=== PATIENT | female | born 1935 | race Caucasian/White ===

== ENCOUNTER → 2016-03-09 | Outpatient (CLI) | payer MEDICARE, OTHER ==
[2016-03-09 15:13] LABS: ABSOLUTE BASOPHILS # (AUTO) 0.1 10^3/uL (0.0-0.2); ABSOLUTE EOSINOPHILS # (AUTO) 0.1 10^3/uL (0.0-0.6); ABSOLUTE MONOCYTES (AUTO) 1.2 10^3/uL (0.1-1.4); ABSOLUTE NEUT (AUTO) 10.6 10^3/uL (1.7-8.2); BASOPHILS % (AUTO) 0.7 % (0-2); EOSINOPHILS % (AUTO) 0.8 % (0-6); HEMATOCRIT 40.5 % (36.0-47.0); HEMOGLOBIN 13.4 g/dL (12.0-15.5); HGB HCT DIFFERENCE -0.3; LYMPHOCYTES % (AUTO) 14.1 % (13-45); MEAN CORPUSCULAR HEMOGLOBIN 28.5 pg (27.0-33.4); MEAN CORPUSCULAR HGB CONC 33.1 g/dL (32.0-36.0); MEAN CORPUSCULAR VOLUME 86 fl (80-97); MONOCYTES % (AUTO) 8.3 % (3-13); RED BLOOD COUNT 4.71 10^6/uL (3.72-5.28); RED CELL DISTRIBUTION WIDTH 14.6 % (11.5-14.0); SEGMENTED NEUTROPHILS % (AUTO) 76.1 % (42-78)
[2016-03-09 15:31] LABS: ANION GAP 14 (5-19); BLOOD UREA NITROGEN 19 mg/dL (7-20); CALCIUM 9.8 mg/dL (8.4-10.2); CARBON DIOXIDE 26 mmol/L (22-30); CHLORIDE 102 mmol/L (98-107); CREATININE RESULT 0.92 mg/dL (0.52-1.25); GLUCOSE 83 mg/dL (75-110); POTASSIUM 4.2 mmol/L (3.6-5.0); SODIUM 142.3 mmol/L (137-145)
== END ==
LOC: OD 13:19
PROVIDERS: ATTEND Specialist
DX: R10.9 Unspecified abdominal pain (principal); D50.9 Iron deficiency anemia, unspecified
CPT/HCPCS: 36415; 80048; 85025

== ENCOUNTER → 2016-03-12 | Outpatient (CLI) | payer MEDICARE, OTHER | LOC: RAD 09:17 | PROVIDERS: ATTEND Specialist | DX: R10.9 Unspecified abdominal pain (principal) | CPT/HCPCS: 74150 ==

== ENCOUNTER → 2016-03-16 | Outpatient (CLI) | payer MEDICARE, OTHER ==
[2016-03-16 14:45] LABS: ABSOLUTE BASOPHILS # (AUTO) 0.1 10^3/uL (0.0-0.2); ABSOLUTE EOSINOPHILS # (AUTO) 0.2 10^3/uL (0.0-0.6); ABSOLUTE LYMPHOCYTES (AUTO) 1.7 10^3/uL (0.5-4.7); ABSOLUTE MONOCYTES (AUTO) 0.4 10^3/uL (0.1-1.4); ABSOLUTE NEUT (AUTO) 5.7 10^3/uL (1.7-8.2); EOSINOPHILS % (AUTO) 2.7 % (0-6); HEMATOCRIT 39.8 % (36.0-47.0); HEMOGLOBIN 12.4 g/dL (12.0-15.5); HGB HCT DIFFERENCE -2.6; LYMPHOCYTES % (AUTO) 20.9 % (13-45); MEAN CORPUSCULAR HEMOGLOBIN 27.7 pg (27.0-33.4); MEAN CORPUSCULAR HGB CONC 31.2 g/dL (32.0-36.0); MEAN CORPUSCULAR VOLUME 89 fl (80-97); MONOCYTES % (AUTO) 5.5 % (3-13); RED BLOOD COUNT 4.49 10^6/uL (3.72-5.28); RED CELL DISTRIBUTION WIDTH 14.5 % (11.5-14.0); SEGMENTED NEUTROPHILS % (AUTO) 69.9 % (42-78); WHITE BLOOD COUNT 8.1 10^3/uL (4.0-10.5)
[2016-03-16 14:57] LABS: APPEARANCE,URINE CLOUDY; BILIRUBIN,URINE NEGATIVE (NEGATIVE); CALCIUM OXALATE CRYSTALS,URINE TOO NUMEROUS TO CNT /HPF; GLUCOSE, URINE NEGATIVE (NEGATIVE); KETONES,URINE NEGATIVE (NEGATIVE); LEUKOCYTE ESTERASE,URINE LARGE (NEGATIVE); NITRITE,URINE NEGATIVE (NEGATIVE); PROTEIN,URINE 30 mg/dL (NEGATIVE); URINE SPECIFIC GRAVITY 1.021; UROBILINOGEN,URINE NEGATIVE mg/dL (<2.0)
== END ==
LOC: OD 13:27
PROVIDERS: ATTEND Specialist
DX: R10.9 Unspecified abdominal pain (principal); D50.9 Iron deficiency anemia, unspecified
CPT/HCPCS: 36415; 81001; 85025; 87086

== ENCOUNTER 2016-06-30 11:56 | Emergency (ER) | payer MEDICARE, OTHER ==
--- NOTE | 2016-06-30 12:14 | ER Document Report ---
ED General - General Chief Complaint: Low Blood Pressure Stated Complaint: BLOOD PRESSURE PROBLEMS Time seen by provider: 12:13 Mode of Arrival: Wheelchair Information source: Patient TRAVEL OUTSIDE OF THE [place] IN LAST 30 DAYS: No - HPI Patient complains to provider of: dizziness, low blood pressure Onset: Other - 2-3 weeks Onset/Duration: Intermittent Severity: Mild Exacerbated by: Standing, Movement Relieved by: Denies Similar symptoms previously: Yes Recently seen / treated by doctor: Yes Notes: Patient is an 81-year-old female who was sent to the emergency room by her primary care provider for intermittent episodes of low blood pressure dizziness , she was seen by her primary care provider this morning, medication adjustments were made at a visit that she had 2 weeks ago, she continues to have intermittent episodes of hypotension and has a list of the blood pressures that she has taken over the past week with several systolic blood pressures in the 70-80 range - Related Data Allergies/Adverse Reactions: iodine [Iodine] Allergy (Verified 06/30/16 12:06) Hives Sulfa (Sulfonamide Antibiotics) Allergy (Verified 06/30/16 12:06) Pruritis aspirin [Aspirin] Adverse Reaction (Verified 06/30/16 12:06) Past Medical History - Social History Smoking Status: Never Smoker Family History: Hypertension Patient has suicidal ideation: No Patient has homicidal ideation: No - Past Medical History Cardiac Medical History: Reports: Hx Hypertension Denies: Hx Coronary Artery Disease, Hx Heart Attack Pulmonary Medical History: Reports: Hx Bronchitis, Hx Pneumonia - 20 years ago Denies: Hx Asthma, Hx COPD Neurological Medical History: Denies: Hx Cerebrovascular Accident, Hx Seizures Renal/ Medical History: Denies: Hx Peritoneal Dialysis GI Medical History: Reports: Hx Gastroesophageal Reflux Disease, Hx Hiatal Hernia Musculoskeltal Medical History: Reports Hx Arthritis - Complete L knee replacement Psychiatric Medical History: Reports: Hx Depression Past Surgical History: Reports: Hx Abdominal Surgery, Hx Appendectomy, Hx Cholecystectomy, Hx Hysterectomy. Denies: Hx Pacemaker - Immunizations Hx Diphtheria, Pertussis, Tetanus Vaccination: Yes Hx Pneumococcal Vaccination: 02/28/06 Physical Exam - Vital signs Vitals: Temp Pulse Resp BP Pulse Ox 98.3 F 78 16 142/64 H 100 06/30/16 12:06 06/30/16 12:06 06/30/16 12:06 06/30/16 12:06 06/30/16 12:06 Course - Vital Signs Vital signs: Temp Pulse Resp BP Pulse Ox 98.3 F 78 16 142/64 H 100 06/30/16 12:06 06/30/16 12:06 06/30/16 12:06 06/30/16 12:06 06/30/16 12:06
[2016-06-30 12:39] LABS: ABSOLUTE EOSINOPHILS # (AUTO) 0.2 10^3/uL (0.0-0.6); ABSOLUTE LYMPHOCYTES (AUTO) 1.6 10^3/uL (0.5-4.7); ABSOLUTE MONOCYTES (AUTO) 0.5 10^3/uL (0.1-1.4); BASOPHILS % (AUTO) 0.9 % (0-2); EOSINOPHILS % (AUTO) 3.8 % (0-6); HEMATOCRIT 38.7 % (36.0-47.0); HEMOGLOBIN 12.9 g/dL (12.0-15.5); LYMPHOCYTES % (AUTO) 29.6 % (13-45); MEAN CORPUSCULAR HEMOGLOBIN 29.1 pg (27.0-33.4); MEAN CORPUSCULAR HGB CONC 33.3 g/dL (32.0-36.0); MEAN CORPUSCULAR VOLUME 87 fl (80-97); MONOCYTES % (AUTO) 9.2 % (3-13); RED BLOOD COUNT 4.42 10^6/uL (3.72-5.28); RED CELL DISTRIBUTION WIDTH 13.5 % (11.5-14.0); SEGMENTED NEUTROPHILS % (AUTO) 56.5 % (42-78); WHITE BLOOD COUNT 5.3 10^3/uL (4.0-10.5)
[2016-06-30 12:58] LABS: ALANINE AMINOTRANSFERASE 29 U/L (9-52); ALBUMIN 3.9 g/dL (3.5-5.0); ALKALINE PHOSPHATASE 71 U/L (38-126); ANION GAP 15 (5-19); ASPARTATE AMINO TRANSFERASE 23 U/L (14-36); BILIRUBIN,DIRECT 0.2 mg/dL (0.0-0.4); BILIRUBIN,TOTAL 0.4 mg/dL (0.2-1.3); BLOOD UREA NITROGEN 24 mg/dL (7-20); CALCIUM 9.9 mg/dL (8.4-10.2); CARBON DIOXIDE 23 mmol/L (22-30); CHLORIDE 108 mmol/L (98-107); CREATININE RESULT 0.97 mg/dL (0.52-1.25); GLUCOSE 81 mg/dL (75-110); SODIUM 145.5 mmol/L (137-145); TOTAL PROTEIN 6.9 g/dL (6.3-8.2)
[2016-06-30] MEDS ORDERED: NORMAL SALINE 500 ML IV ONE (12:59)
[2016-06-30] MEDS ORDERED: NORMAL SALINE 1000 ML 1,000 ML IV ONE (13:07)
--- NOTE | 2016-06-30 14:03 | ER Document Report ---
ED General - General Chief Complaint: Low Blood Pressure Stated Complaint: BLOOD PRESSURE PROBLEMS Mode of Arrival: Wheelchair TRAVEL OUTSIDE OF THE [place] IN LAST 30 DAYS: No - HPI Patient complains to provider of: transient hypotension dizziness Notes: Since coming in for evaluation of transient hypotension and dizziness. Patient states she has had multiple visits to her primary care physician in the last few weeks 40 symptoms with no answer. Patient denies any new medications. Patient states symptoms started back in October after she had a [employer] fundoplication procedure performed patient denies fevers chills nausea vomiting change medication recent travel. Shortness of breath chest pain abdominal pain - Related Data Allergies/Adverse Reactions: iodine [Iodine] Allergy (Verified 06/30/16 12:06) Hives Sulfa (Sulfonamide Antibiotics) Allergy (Verified 06/30/16 12:06) Pruritis aspirin [Aspirin] Adverse Reaction (Verified 06/30/16 12:06) Past Medical History - General Information source: Patient - Social History Smoking Status: Never Smoker Family History: Hypertension Patient has suicidal ideation: No Patient has homicidal ideation: No - Past Medical History Cardiac Medical History: Reports: Hx Hypertension Denies: Hx Coronary Artery Disease, Hx Heart Attack Pulmonary Medical History: Reports: Hx Bronchitis, Hx Pneumonia - 20 years ago Denies: Hx Asthma, Hx COPD Neurological Medical History: Denies: Hx Cerebrovascular Accident, Hx Seizures Renal/ Medical History: Denies: Hx Peritoneal Dialysis GI Medical History: Reports: Hx Gastroesophageal Reflux Disease, Hx Hiatal Hernia Musculoskeltal Medical History: Reports Hx Arthritis - Complete L knee replacement Psychiatric Medical History: Reports: Hx Depression Past Surgical History: Reports: Hx Abdominal Surgery, Hx Appendectomy, Hx Cholecystectomy, Hx Hysterectomy. Denies: Hx Pacemaker - Immunizations Hx Diphtheria, Pertussis, Tetanus Vaccination: Yes Hx Pneumococcal Vaccination: 02/28/06 Review of Systems - Review of Systems Constitutional: Other - Transient hypotension dizziness EENT: No symptoms reported Cardiovascular: No symptoms reported Respiratory: No symptoms reported Gastrointestinal: No symptoms reported Genitourinary: No symptoms reported Female Genitourinary: No symptoms reported Musculoskeletal: No symptoms reported Skin: No symptoms reported Hematologic/Lymphatic: No symptoms reported Neurological/Psychological: No symptoms reported -: Yes All other systems reviewed and negative Physical Exam - Vital signs Vitals: Temp Pulse Resp BP Pulse Ox 98.3 F 78 16 142/64 H 100 06/30/16 12:06 06/30/16 12:06 06/30/16 12:06 06/30/16 12:06 06/30/16 12:06 Interpretation: Normal - General General appearance: Appears well, Alert - HEENT Head: Normocephalic, Atraumatic Eyes: Normal Pupils: PERRL - Respiratory Respiratory status: No respiratory distress Chest status: Nontender Breath sounds: Normal Chest palpation: Normal - Cardiovascular Rhythm: Regular Heart sounds: Normal auscultation Murmur: No - Abdominal Inspection: Normal Distension: No distension Bowel sounds: Normal Tenderness: Nontender Organomegaly: No organomegaly - Back Back: Normal, Nontender - Extremities General upper extremity: Normal inspection, Nontender, Normal color, Normal ROM , Normal temperature General lower extremity: Normal inspection, Nontender, Normal color, Normal ROM , Normal temperature, Normal weight bearing. No: Raine's sign - Neurological Neuro grossly intact: Yes Cognition: Normal Orientation: AAOx4 Felisa Coma Scale Eye Opening: Spontaneous [place] Coma Scale Verbal: Oriented [place] Coma Scale Motor: Obeys Commands [place] Coma Scale Total: 15 Speech: Normal Motor strength normal: LUE, RUE, LLE, RLE Sensory: Normal - Psychological Associated symptoms: Normal affect, Normal mood - Skin Skin Temperature: Warm Skin Moisture: Dry Skin Color: Normal Course - Re-evaluation Re-evalutation: 06/30/16 15:17 Patient's laboratory showed elevated sodium chloride possible slight dehydration. Patient was given a liter fluids and told follow-up with her PCP for possible cardiology consult. Patient states understanding agrees to plan of action. - Vital Signs Vital signs: Temp Pulse Resp BP Pulse Ox 98.3 F 78 13 141/65 H 99 06/30/16 12:06 06/30/16 12:06 06/30/16 14:00 06/30/16 14:01 06/30/16 14:01 - Laboratory Result Diagrams: 06/30/16 12:20 06/30/16 12:20 Laboratory results interpreted by me: 06/30/16 06/30/16 12:20 13:30 Sodium 145.5 H Chloride 108 H BUN 24 H Est GFR (Non-Af Amer) 55 L Ur Leukocyte Esterase TRACE H Discharge - Discharge Clinical Impression: Transient hypotension, Dehydration Condition: Good Instructions: Dizziness ([facility]) Additional Instructions: Your laboratory studies do not show any critical etiology for transient hypotension or dizziness. Possibility of this may be due to overstimulation of her vagus nerve are vasovagal symptoms. This is very hard to prove here in ER There are some indications of slight dehydration. I would highly recommend a follow-up with your primary care physician. He may need follow-up with other specialties for more testing. I recommend drinking plenty of water slowly changing positions. Return to ER symptoms worsen. Your home medications.
[2016-06-30 14:35] LABS: APPEARANCE,URINE CLEAR; BILIRUBIN,URINE NEGATIVE (NEGATIVE); GLUCOSE, URINE NEGATIVE (NEGATIVE); KETONES,URINE NEGATIVE (NEGATIVE); LEUKOCYTE ESTERASE,URINE TRACE (NEGATIVE); NITRITE,URINE NEGATIVE (NEGATIVE); PROTEIN,URINE NEGATIVE (NEGATIVE); URINE SPECIFIC GRAVITY 1.012; UROBILINOGEN,URINE NEGATIVE mg/dL (<2.0)
[2016-06-30 16:18] VITALS: BP 141/69
--- NOTE | 2016-06-30 19:04 | EKG REPORT ---
SEVERITY:- OTHERWISE NORMAL ECG - SINUS RHYTHM BORDERLINE LEFT AXIS DEVIATION : Confirmed by: Kash Gill MD 30-Jun-2016 19:03:39
== END 2016-06-30 16:16 | disposition home or self-care (01) ==
LOC: ER 11:56
DX: I95.9 Hypotension, unspecified (principal); E86.0 Dehydration; I10 Essential (primary) hypertension; R42 Dizziness and giddiness; Z98.890 Other specified postprocedural states; Z88.2 Allergy status to sulfonamides
CPT/HCPCS: 93005; 99285; 36415; 87086; 85025; 80053; 81001; 84484; 71020; 70450; 93010; J7030

== ENCOUNTER → 2016-07-30 | Outpatient (CLI) | payer MEDICARE, OTHER ==
--- NOTE | 2016-07-30 10:43 | WOMENS IMAGING REPORT ---
EXAM DESCRIPTION: BONE DENSITY HIP/SPINE COMPLETED DATE/TIME: 07/30/2016 10:30 am REASON FOR STUDY: E28.39 BONE DENSITY Z12.31 ENCNTR SCREEN MAMMOGRAM FOR MALIGNANT NEOPLASM OF DAMION E28.39 OTHER PRIMARY OVARIAN FAILURE COMPARISON: 07/06/2006 TECHNIQUE: Dual-Energy X-ray Absorptiometry (DEXA) of the AP Spine and Hip. LIMITATIONS: None. FINDINGS: LUMBAR SPINE: The bone mineral density (BMD) measured from L1-L4 in the AP projection correlates with a T-score of -1.2, previously -0.6, which is osteopenia as defined by the World Health Organization. HIP: The bone mineral density (BMD) measured in the left hip correlates with a T-score of -0.9, previously -0.6, which is normal as defined by the World Health Organization. IMPRESSION: 1. LUMBAR SPINE: OSTEOPENIA. 2. HIP: NORMAL. COMMENT: Osteopenia. The World Health Organization defines low BMD as follows: T-score: Normal: Greater than -1.0 Osteopenia: Between -1.0 and -2.5 Osteoporosis: Less than -2.5 without fractures Established osteoporosis: Less than -2.5 with fractures In general, you may wish to consider: Diagnosis Treatment Follow-up DEXA Normal BMD Prevention 2-3 years Osteopenia Prevention/Therapy 1-2 years Osteoporosis Therapy Yearly TECHNICAL DOCUMENTATION: JOB ID: [id number] [employer]- All Rights Reserved
--- NOTE | 2016-07-30 11:51 | WOMENS IMAGING REPORT ---
EXAM DESCRIPTION: 3D SCREENING MAMMO BILAT COMPLETED DATE/TIME: 07/30/2016 10:48 am REASON FOR STUDY: Z12.31 ROUTINE SCREENING Z12.31 ENCNTR SCREEN MAMMOGRAM FOR MALIGNANT NEOPLASM OF DAMION E28.39 OTHER PRIMARY OVARIAN FAILURE COMPARISON: 05/16/2009 TECHNIQUE: Standard craniocaudal and mediolateral oblique views of each breast recorded using digita l acquisition and breast tomosynthesis. LIMITATIONS: None. FINDINGS: No masses, calcifications or architectural distortion. No areas of suspicion. Read with the assistance of CAD. .[facility] - R2 Cenova Version 1.3 .[facility] - R2 Cenova Version 1.3 .[facility] - R2 Cenova Version 2.4 .[facility] - R2 Cenova Version 2.4 .[facility] - R2 Submersible Pilot Version 9.2 IMPRESSION: NORMAL MAMMOGRAM. BIRADS 1. BREAST DENSITY: b. There are scattered areas of fibroglandular density. BIRAD: 1 NEGATIVE RECOMMENDATION: ROUTINE SCREENING COMMENT: The patient has been notified of the results by letter per MQSA requirements. Additional no tification policies are in place for contacting patient with suspicious or incomplete findings. Quality ID #225: The [employer] recommends an annual screening mammogram for women aged 40 years or over. This facility utilizes a reminder system to ensure that all patients receive reminder letters, and/or direct phone calls for appointments. This includes reminders for routine scr eening mammograms, diagnostic mammograms, or other Breast Imaging Interventions when appropriate. Th is patient will be placed in the appropriate reminder system. The [employer] (ACR) has developed recommendations for screening MRI of the breast s in certain patient populations, to be used in conjunction with mammography. Breast MRI surveillanc e may be appropriate for women with more than 20% lifetime risk of developing breast cancer as deter mined by genetic testing, significant family history of the disease, or history of mantle radiation f or Hodgkins Disease. ACR Practice Guidelines 2008. DBT Technology DBT is a type of tomographic mammography. With conventional mammography, overlapping breast tissue ma y make lesions difficult to detect, even with good compression. DBT uses an x-ray tube that rotates a round the breast, taking images at different angles. These images are then combined to create thin sl ices of the breast that the radiologist can view as a 3D reconstruction. The Soonr unit can perform full-field digital mammograms (2D imaging); or DBT (3D imaging); or both, in a combination mode that quickly performs both the mammogram and the tomosynthesis scan while the breast is still compressed. PQRS 6045F: Fluoroscopic imaging is not utilized for breast tomosynthesis. TECHNICAL DOCUMENTATION: FINDING NUMBER: (1) ASSESSMENT: (1) JOB ID: [id number] [employer]- All Rights Reserved
== END ==
LOC: WI 09:24
PROVIDERS: ATTEND Physician Assistant
DX: Z12.31 Encounter for screening mammogram for malignant neoplasm of breast (principal); E28.39 Other primary ovarian failure; M85.88 Other specified disorders of bone density and structure, other site
CPT/HCPCS: 77063; 77080; G0202; 77067

== ENCOUNTER → 2016-08-02 | Outpatient (CLI) | payer MEDICARE, OTHER ==
--- NOTE | 2016-08-03 08:33 | RADIOLOGY REPORT (SQ) ---
EXAM DESCRIPTION: MRI HEAD COMBO COMPLETED DATE/TIME: 08/02/2016 4:58 pm REASON FOR STUDY: FACIAL NUMBNESS R20.0 ANESTHESIA OF SKIN COMPARISON: CT brain 06/30/2016 TECHNIQUE: Multiplanar imaging includes noncontrasted T1, T2, FLAIR, diffusion with ADC map and post gadolinium contrast T1 sequences. Images stored on PACS. Additional thin section axial and coronal T2, T1 precontrast T1 post-contrast imaging through the kevin tral skullbase and orbits CONTRAST TYPE AND DOSE: 10 mL Multihance. RENAL FUNCTION: GFR > 60. LIMITATIONS: None. FINDINGS: ANATOMY: No developmental anomalies. Normal vascular flow voids. Pituitary fossa normal. CSF SPACES: Normal in size and contour. No hemorrhage. CEREBRUM: Sulci and gyri normal in size and contour. Normal white matter signal on FLAIR imaging. No evidence of hemorrhage, mass, or extraaxial fluid collection. No abnormal enhancement post contrast. POSTERIOR FOSSA: No signal alteration. No hemorrhage. No edema, masses, or mass effect. Internal nicole tory canals, cerebellopontine angles, mastoids normal. No enhancing lesions. No abnormal enhancement post contrast. DIFFUSION IMAGING: Negative for acute or subacute infarction. ORBITS: On the right side, an 8 x 6 x 7 mm well-circumscribed slightly lobular nodule is present betw een the lateral rectus muscle and optic nerve. No displacement or mass effect on the optic nerve. T his is slightly increased in signal as compared to brain parenchyma on T2 weighted images, isointense to brain on T1, with avid gadolinium enhancement. This likely represents a small schwannoma or neur ofibroma. A small hemangiopericytoma or tiny cavernous malformation is possible. PARANASAL SINUSES: No fluid levels. Mucosa normal. OTHER: No other significant finding. IMPRESSION: NORMAL MRI OF THE BRAIN WITHOUT AND WITH INTRAVENOUS GADOLINIUM CONTRAST. INCIDENTAL FINDING OF AN 8 X 6 X 7 MM NODULE IN THE INTRACONAL FAT, BETWEEN THE RIGHT OPTIC NERVE AND LATERAL RECTUS MUSCLE. THIS COULD REPRESENT A SMALL SCHWANNOMA OR NEUROFIBROMA. OTHER ETIOLOGIES A S ABOVE. TECHNICAL DOCUMENTATION: JOB ID: [id number]- All Rights Reserved
== END ==
LOC: RAD 15:03
PROVIDERS: ATTEND Physician Assistant
DX: R20.0 Anesthesia of skin (principal); R93.0 Abnormal findings on diagnostic imaging of skull and head, not elsewhere classified
CPT/HCPCS: 70553; A9577

== ENCOUNTER → 2016-08-11 | Outpatient (CLI) | payer MEDICARE, OTHER ==
--- NOTE | 2016-08-11 16:07 | RADIOLOGY REPORT (SQ) ---
EXAM DESCRIPTION: CAROTID DOPPLER COMPLETED DATE/TIME: 08/11/2016 3:57 pm REASON FOR STUDY: ANESTHESIA OF SKIN R20.0 ANESTHESIA OF SKIN COMPARISON: None. TECHNIQUE: Grayscale ultrasound, Doppler velocity and spectra, and color Doppler images acquired of the extra-cranial carotid and vertebral arteries. Images stored on PACS. LIMITATIONS: None. FINDINGS: RIGHT CAROTID CCA Velocities: Within normal limits. ICA Velocities Peak systolic 1.56 m/s. End diastolic 0.55 m/s. Proximal ICA/CCA peak systolic ratio 1.9. Distal ICA noted to be tortuous likely causing elevated velocities. There is minimal atherosclerotic plaque noted within the ICA. Triphasic waveforms. LEFT CAROTID CCA Velocities: Within normal limits. ICA Velocities Peak systolic 0.85 m/s. End diastolic 0.30 m/s. Proximal ICA/CCA peak systolic ratio 1.1. Triphasic waveforms. No significant plaque. VERTEBRAL ARTERIES: Antegrade flow. Normal waveforms. SUBCLAVIAN ARTERIES: No finding. OTHER: No other significant finding. IMPRESSION: Elevated velocities within in the right internal carotid artery likely due to vessel tor tuosity. No significant plaque seen within the vessel. No hemodynamically significant stenosis iden tified on the left. COMMENT: Quality ID #195: Velocity criteria are extrapolated from the diameter data as defined by t he Society of Radiologists in Ultrasound Consensus Conference. Radiology 2003: 229; 340-346. TECHNICAL DOCUMENTATION: JOB ID: [id number] [employer]- All Rights Reserved
== END ==
LOC: SP 14:34
PROVIDERS: ATTEND Physician Assistant
DX: R20.0 Anesthesia of skin (principal)
CPT/HCPCS: 93880

== ENCOUNTER → 2016-11-16 | Outpatient (CLI) | payer MEDICARE, OTHER ==
[2016-11-16 15:40] LABS: APPEARANCE,URINE CLEAR; BILIRUBIN,URINE NEGATIVE (NEGATIVE); GLUCOSE, URINE NEGATIVE (NEGATIVE); KETONES,URINE NEGATIVE (NEGATIVE); LEUKOCYTE ESTERASE,URINE TRACE (NEGATIVE); NITRITE,URINE NEGATIVE (NEGATIVE); PROTEIN,URINE NEGATIVE (NEGATIVE); URINE SPECIFIC GRAVITY 1.023; UROBILINOGEN,URINE NEGATIVE mg/dL (<2.0)
[2016-11-16 15:43] LABS: ABSOLUTE BASOPHILS # (AUTO) 0.1 10^3/uL (0.0-0.2); ABSOLUTE EOSINOPHILS # (AUTO) 0.2 10^3/uL (0.0-0.6); ABSOLUTE LYMPHOCYTES (AUTO) 1.9 10^3/uL (0.5-4.7); ABSOLUTE MONOCYTES (AUTO) 0.5 10^3/uL (0.1-1.4); ABSOLUTE NEUT (AUTO) 3.6 10^3/uL (1.7-8.2); BASOPHILS % (AUTO) 1.1 % (0-2); EOSINOPHILS % (AUTO) 3.2 % (0-6); HEMATOCRIT 38.1 % (36.0-47.0); HEMOGLOBIN 13.1 g/dL (12.0-15.5); HGB HCT DIFFERENCE 1.2; LYMPHOCYTES % (AUTO) 30.3 % (13-45); MEAN CORPUSCULAR HEMOGLOBIN 30.1 pg (27.0-33.4); MEAN CORPUSCULAR HGB CONC 34.2 g/dL (32.0-36.0); MEAN CORPUSCULAR VOLUME 88 fl (80-97); MONOCYTES % (AUTO) 7.3 % (3-13); RED BLOOD COUNT 4.33 10^6/uL (3.72-5.28); RED CELL DISTRIBUTION WIDTH 13.4 % (11.5-14.0); SEGMENTED NEUTROPHILS % (AUTO) 58.1 % (42-78); WHITE BLOOD COUNT 6.3 10^3/uL (4.0-10.5)
--- NOTE | 2016-11-16 16:05 | RADIOLOGY REPORT (SQ) ---
EXAM DESCRIPTION: ACUTE ABDOMEN SERIES COMPLETED DATE/TIME: 11/16/2016 3:57 pm REASON FOR STUDY: UNSPECIFIED ABDOMINAL PAIN R10.9 UNSPECIFIED ABDOMINAL PAIN COMPARISON: None. NUMBER OF VIEWS: Three views. TECHNIQUE: Frontal chest, supine abdomen and upright/decubitus abdomen radiographic images acquired. LIMITATIONS: None. FINDINGS: CHEST: Lungs clear of infiltrates. FREE AIR: None. No abnormal gas collections. BOWEL GAS PATTERN: Nonobstructive pattern. No dilated loops or air fluid levels. CALCIFICATIONS: No suspicious calcifications. HARDWARE: Surgical clips. SOFT TISSUES: No gross mass or suggestion of organomegaly. BONES: No acute fracture. No worrisome bone lesions. OTHER: No other significant finding. IMPRESSION: NO RADIOGRAPHIC EVIDENCE FOR ACUTE ABDOMINAL DISEASE. TECHNICAL DOCUMENTATION: JOB ID: [id number] [employer]- All Rights Reserved
[2016-11-16 16:31] LABS: LIPASE 166.2 U/L (23-300)
== END ==
LOC: OD 14:54
PROVIDERS: ATTEND Specialist
DX: R10.9 Unspecified abdominal pain (principal); D50.9 Iron deficiency anemia, unspecified
CPT/HCPCS: 36415; 74022; 81001; 82150; 83690; 85025; 87086

== ENCOUNTER 2016-11-19 14:25 | Emergency (ER) | payer MEDICARE, OTHER ==
--- NOTE | 2016-11-19 14:44 | ER Document Report ---
ED Medical Screen (RME) - General Chief Complaint: Abdominal Pain Stated Complaint: ABDOMINAL PAIN Time Seen by Provider: 11/19/16 14:38 Notes: This 81-year-old female patient comes emergency room complaining of pain upon her left rib cage going throughout the abdomen. She reports the most recent episode started on 11/16/2016. She had acute abdominal series x-rays done on that day. She also had outpatient lab work done which appears all to be normal. She has had abdominal pain for many many years. She had a CT scan in February 2016. She reports a esophageal diverticulum removed in December 2015. She reports a sensation of something bouncing up and down in her left upper abdomen when she walks. I have greeted and performed a rapid initial assessment of this patient. A comprehensive ED assessment and evaluation of the patient, analysis of test results and completion of the medical decision making process will be conducted by additional ED providers. TRAVEL OUTSIDE OF THE [place] IN LAST 30 DAYS: No - Related Data Allergies/Adverse Reactions: iodine [Iodine] Allergy (Verified 11/19/16 14:30) Hives Sulfa (Sulfonamide Antibiotics) Allergy (Verified 11/19/16 14:30) Pruritis aspirin [Aspirin] Adverse Reaction (Verified 11/19/16 14:30) Past Medical History - Social History Chew tobacco use (# tins/day): No Frequency of alcohol use: None Drug Abuse: None - Past Medical History Cardiac Medical History: Reports: Hx Hypertension Denies: Hx Coronary Artery Disease, Hx Heart Attack Pulmonary Medical History: Reports: Hx Bronchitis, Hx Pneumonia - 20 years ago Denies: Hx Asthma, Hx COPD Neurological Medical History: Denies: Hx Cerebrovascular Accident, Hx Seizures Renal/ Medical History: Denies: Hx Peritoneal Dialysis GI Medical History: Reports: Hx Gastroesophageal Reflux Disease, Hx Hiatal Hernia Musculoskeltal Medical History: Reports Hx Arthritis - Complete L knee replacement Psychiatric Medical History: Reports: Hx Depression Past Surgical History: Reports: Hx Abdominal Surgery, Hx Appendectomy, Hx Cholecystectomy, Hx Hysterectomy. Denies: Hx Pacemaker - Immunizations Hx Diphtheria, Pertussis, Tetanus Vaccination: Yes Physical Exam - Vital signs Vitals: Temp Pulse Resp BP Pulse Ox 98.5 F 80 18 144/75 H 97 11/19/16 14:28 11/19/16 14:28 11/19/16 14:28 11/19/16 14:28 11/19/16 14:28 Course - Vital Signs Vital signs: Temp Pulse Resp BP Pulse Ox 98.5 F 80 18 144/75 H 97 11/19/16 14:28 11/19/16 14:28 11/19/16 14:28 11/19/16 14:28 11/19/16 14:28
[2016-11-19] MEDS ORDERED: NORMAL SALINE 1000 ML 1,000 ML IV PRN (16:20)
[2016-11-19] MEDS ORDERED: KETOROLAC TROMETHAMINE INJ/PF 30 MG/1 ML SDV IV ONE (16:20)
[2016-11-19] MEDS ORDERED: ONDANSETRON HCL INJ/PF 4 MG/2 ML SDV IV ONE (16:20)
--- NOTE | 2016-11-19 16:24 | ER Document Report ---
ED GI/ - General Chief Complaint: Abdominal Pain Stated Complaint: ABDOMINAL PAIN Time Seen by Provider: 11/19/16 14:38 TRAVEL OUTSIDE OF THE [place] IN LAST 30 DAYS: No - HPI Patient complains to provider of: Abdominal pain, Vomiting Timing/Duration: Persistent Quality of pain: Achy, Cramping Severity at maximum: Moderate Severity in ED: Moderate Pain Level: 3 Location: Other - Diffuse Associated symptoms: Nausea, Vomiting Notes: 11/19/16 16:22 Patient is an 81-year-old female presenting to the emergency room today complaining of abdominal pain that has been present for several years but worsening over the past week, with nausea, vomiting and decreased appetite, as well as a 4 pound weight loss, she reports that she has been seen by her mothers helper for this recently, he did outpatient labs which she was told were unremarkable, she has a history of a hiatal hernia repair with revision 6 years ago, and surgery for a esophageal diverticulum in December of last year, she did take several items in order to assist her with having a bowel movement 2 days ago including Linzess, a suppository, an enema with mineral oil, she also takes MiraLAX and Metamucil on a daily basis, she also reports a history of gastroparesis and acid reflux/gastritis - Related Data Allergies/Adverse Reactions: iodine [Iodine] Allergy (Verified 11/19/16 14:30) Hives Sulfa (Sulfonamide Antibiotics) Allergy (Verified 11/19/16 14:30) Pruritis aspirin [Aspirin] Adverse Reaction (Verified 11/19/16 14:30) Past Medical History - General Information source: Patient - Social History Smoking Status: Never Smoker Chew tobacco use (# tins/day): No Frequency of alcohol use: None Drug Abuse: None Family History: Hypertension - Past Medical History Cardiac Medical History: Reports: Hx Hypertension Denies: Hx Coronary Artery Disease, Hx Heart Attack Pulmonary Medical History: Reports: Hx Bronchitis, Hx Pneumonia - 20 years ago Denies: Hx Asthma, Hx COPD Neurological Medical History: Denies: Hx Cerebrovascular Accident, Hx Seizures Renal/ Medical History: Denies: Hx Peritoneal Dialysis GI Medical History: Reports: Hx Gastroesophageal Reflux Disease, Hx Hiatal Hernia Musculoskeltal Medical History: Reports Hx Arthritis - Complete L knee replacement Psychiatric Medical History: Reports: Hx Depression Past Surgical History: Reports: Hx Abdominal Surgery, Hx Appendectomy, Hx Cholecystectomy, Hx Hysterectomy. Denies: Hx Pacemaker - Immunizations Hx Diphtheria, Pertussis, Tetanus Vaccination: Yes Hx Pneumococcal Vaccination: 02/28/06 Review of Systems - Review of Systems Constitutional: Weight loss EENT: No symptoms reported Cardiovascular: No symptoms reported Respiratory: No symptoms reported Gastrointestinal: See HPI Genitourinary: No symptoms reported Female Genitourinary: No symptoms reported Musculoskeletal: No symptoms reported Skin: No symptoms reported Hematologic/Lymphatic: No symptoms reported Neurological/Psychological: No symptoms reported -: Yes All other systems reviewed and negative Physical Exam - Vital signs Vitals: Temp Pulse Resp BP Pulse Ox 98.5 F 80 18 144/75 H 97 11/19/16 14:28 11/19/16 14:28 11/19/16 14:28 11/19/16 14:28 11/19/16 14:28 Interpretation: Normal - General General appearance: Appears well, Alert - HEENT Head: Normocephalic, Atraumatic Eyes: Normal Pupils: PERRL - Respiratory Respiratory status: No respiratory distress Chest status: Nontender Breath sounds: Normal Chest palpation: Normal - Cardiovascular Rhythm: Regular Heart sounds: Normal auscultation Murmur: No - Abdominal Inspection: Normal Distension: No distension Bowel sounds: Normal Tenderness: Tender - Mild diffuse tenderness Organomegaly: No organomegaly - Back Back: Normal, Nontender - Extremities General upper extremity: Normal inspection, Nontender, Normal color, Normal ROM , Normal temperature General lower extremity: Normal inspection, Nontender, Normal color, Normal ROM , Normal temperature, Normal weight bearing. 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, although also states it could be neoplastic in nature, however patient's labs are completely normal and not consistent with any neoplastic process such as lymphoma, however patient was given a copy of her CT scan findings, placed on a tapering dose of steroids and advised to follow-up in 3-[address] scans, she does have an appointment next week with her mothers helper, she was advised to keep this appointment, or return if any additional concerns, patient acknowledges understanding and agreement with this plan - Vital Signs Vital signs: Temp Pulse Resp BP Pulse Ox 98.5 F 67 18 184/81 H 100 11/19/16 14:28 11/19/16 19:46 11/19/16 19:46 11/19/16 19:46 11/19/16 19:46 - Laboratory Result Diagrams: 11/19/16 16:12 11/19/16 16:45 Laboratory results interpreted by me: 11/19/16 11/19/16 16:45 16:45 BUN 22 H Ur Leukocyte Esterase SMALL H - Diagnostic Test Radiology reviewed: Image reviewed, Reports reviewed Discharge - Discharge Clinical Impression: Mesenteric panniculitis Abdominal pain Qualifiers: Abdominal location: generalized Qualified Code(s): R10.84 - Generalized abdominal pain Condition: Stable Disposition: HOME, SELF-CARE Instructions: Abdominal Pain ([facility]) Additional Instructions: Follow up with your primary care provider in one to 2 days. Return to the emergency room immediately if symptoms worsen or any additional concerns. Prescriptions: Methylprednisolone [Medrol Dosepack (4 mg/Tab) 21 Tab/Dosepak] 4 mg PO ASDIR PRN #21 tab.ds.pk PRN Reason:
[2016-11-19 17:15] LABS: ABSOLUTE BASOPHILS # (AUTO) 0.1 10^3/uL (0.0-0.2); ABSOLUTE EOSINOPHILS # (AUTO) 0.3 10^3/uL (0.0-0.6); ABSOLUTE MONOCYTES (AUTO) 0.5 10^3/uL (0.1-1.4); ABSOLUTE NEUT (AUTO) 4.4 10^3/uL (1.7-8.2); BASOPHILS % (AUTO) 1.1 % (0-2); EOSINOPHILS % (AUTO) 4.7 % (0-6); HEMATOCRIT 41.2 % (36.0-47.0); HEMOGLOBIN 13.7 g/dL (12.0-15.5); HGB HCT DIFFERENCE -0.1; MEAN CORPUSCULAR HEMOGLOBIN 29.4 pg (27.0-33.4); MEAN CORPUSCULAR HGB CONC 33.3 g/dL (32.0-36.0); MEAN CORPUSCULAR VOLUME 88 fl (80-97); MONOCYTES % (AUTO) 6.5 % (3-13); RED BLOOD COUNT 4.66 10^6/uL (3.72-5.28); RED CELL DISTRIBUTION WIDTH 13.6 % (11.5-14.0); SEGMENTED NEUTROPHILS % (AUTO) 59.7 % (42-78); WHITE BLOOD COUNT 7.3 10^3/uL (4.0-10.5)
[2016-11-19 17:25] LABS: ALANINE AMINOTRANSFERASE 27 U/L (9-52); ALBUMIN 4.4 g/dL (3.5-5.0); ALKALINE PHOSPHATASE 85 U/L (38-126); ANION GAP 12 (5-19); ASPARTATE AMINO TRANSFERASE 25 U/L (14-36); BILIRUBIN,DIRECT 0.4 mg/dL (0.0-0.4); BILIRUBIN,TOTAL 0.6 mg/dL (0.2-1.3); BLOOD UREA NITROGEN 22 mg/dL (7-20); CALCIUM 10.1 mg/dL (8.4-10.2); CARBON DIOXIDE 27 mmol/L (22-30); CHLORIDE 103 mmol/L (98-107); GLUCOSE 95 mg/dL (75-110); LIPASE 62.8 U/L (23-300); POTASSIUM 4.3 mmol/L (3.6-5.0); SODIUM 141.5 mmol/L (137-145); TOTAL PROTEIN 7.7 g/dL (6.3-8.2)
[2016-11-19 17:47] LABS: APPEARANCE,URINE CLEAR; BILIRUBIN,URINE NEGATIVE (NEGATIVE); GLUCOSE, URINE NEGATIVE (NEGATIVE); KETONES,URINE NEGATIVE (NEGATIVE); LEUKOCYTE ESTERASE,URINE SMALL (NEGATIVE); NITRITE,URINE NEGATIVE (NEGATIVE); PROTEIN,URINE NEGATIVE (NEGATIVE); URINE SPECIFIC GRAVITY 1.015; UROBILINOGEN,URINE NEGATIVE mg/dL (<2.0)
--- NOTE | 2016-11-19 19:18 | RADIOLOGY REPORT (SQ) ---
EXAM DESCRIPTION: CT ABD/PELVIS ORAL ONLY COMPLETED DATE/TIME: 11/19/2016 6:58 pm REASON FOR STUDY: abdominal pain COMPARISON: 11/04/2013 TECHNIQUE: CT scan of the abdomen and pelvis performed with oral contrast only. Images reviewed with lung, soft tissue, and bone windows. Reconstructed coronal and sagittal MPR images reviewed. All simone ges stored on PACS. All CT scanners at this facility use dose modulation, iterative reconstruction, and/or weight based d osing when appropriate to reduce radiation dose to as low as reasonably achievable (ALARA). [facility]: Dose Right [facility]: CareDose [facility]: Dose Right [facility]: Teradose 4D [facility]: [employer] RADIATION DOSE: Up-to-date CT equipment and radiation dose reduction techniques were employed. CTDIv ol: 3.6 mGy. DLP: 186 mGy-cm.mGy. LIMITATIONS: None. FINDINGS: LOWER CHEST: No significant findings. No nodules or infiltrates. NON-CONTRASTED LIVER, SPLEEN, ADRENALS: Evaluation limited by lack of IV contrast. No identified sign ificant masses. PANCREAS: No masses. No peripancreatic inflammatory changes. GALLBLADDER: Surgically absent. RIGHT KIDNEY AND URETER: No suspicious masses. Assessment limited by lack of IV contrast. No signif icant calcifications. No hydronephrosis or hydroureter. LEFT KIDNEY AND URETER: No suspicious masses. Assessment limited by lack of IV contrast. No signifi cant calcifications. No hydronephrosis or hydroureter. AORTA AND RETROPERITONEUM: No aneurysm. No retroperitoneal masses or adenopathy. BOWEL AND PERITONEAL CAVITY: Scattered colonic diverticula without acute inflammation to suggest dive rticulitis. Small and large bowel loops otherwise normal. Mild diffuse stranding involving the mese nteric root with scattered subcentimeter lymph nodes. APPENDIX: Surgically absent. PELVIS, BLADDER, AND ABDOMINAL WALL:No abnormal masses. No free fluid. Bladder normal. BONES: Degenerative change without fracture or suspicious osseous lesion. OTHER: No other significant finding. IMPRESSION: MILD DIFFUSE STRANDING OF THE MESENTERIC ROOT WITH SCATTERED SUBCENTIMETER LYMPH NODES. 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 NEOPLASTIC [place] OCESS SUCH LYMPHOMA REMAINS IN DIFFERENTIAL THEREFORE RECOMMEND FOLLOWUP CT IN 3 TO 6 MONTHS TO EN SURE STABILITY/ RESOLUTION. ADDITIONAL CHRONIC CHANGES ABOVE. COMMENT: Quality ID # [id number]: Final reports with documentation of one or more dose reduction techniques (e.g., Automated exposure control, adjustment of the mA and/or kV according to patient size, use of iterative reconstruction technique) TECHNICAL DOCUMENTATION: JOB ID: [id number] [employer]- All Rights Reserved
[2016-11-19 19:50] VITALS: BP 184/81
== END 2016-11-19 19:46 | disposition home or self-care (01) ==
LOC: ER 14:25
DX: K65.4 Sclerosing mesenteritis (principal); R10.84 Generalized abdominal pain; R11.2 Nausea with vomiting, unspecified; R63.0 Anorexia; I10 Essential (primary) hypertension; R63.4 Abnormal weight loss; Z68.20 Body mass index [BMI] 20.0-20.9, adult; Z98.890 Other specified postprocedural states; Z87.19 Personal history of other diseases of the digestive system; Z88.2 Allergy status to sulfonamides; Z79.899 Other long term (current) drug therapy; Z90.710 Acquired absence of both cervix and uterus; Z90.49 Acquired absence of other specified parts of digestive tract
CPT/HCPCS: 99284; 96361; 96374; 96375; 36415; 87086; 83690; 85025; 80053; 81001; 74176; J1885; J2405; J7030

== ENCOUNTER → 2016-12-07 | Outpatient (CLI) | payer MEDICARE, OTHER ==
--- NOTE | 2016-12-07 12:46 | RADIOLOGY REPORT (SQ) ---
EXAM DESCRIPTION: NM GASTRIC EMPTYING STUDY COMPLETED DATE/TIME: 12/07/2016 12:37 pm REASON FOR STUDY: EPIGASTRIC PAIN (R10.13) R10.13 EPIGASTRIC PAIN COMPARISON: None. RADIONUCLIDE AND DOSE: The route of agent administration: Oral. 2.1 millicuries Tc-99m Sulfur Colloid. TECHNIQUE: Serial images acquired to 4 hours with each image recorded over a 30 minute time frame. I mage intensity values plotted with respect to time with linear regression algorithm. LIMITATIONS: None. FINDINGS: Patient was observed for 4 hours. Gastric emptying at 60 minutes was 47%. Gastric emptying at 90 minutes was 75%. Gastric emptying at 120 minutes was 88% Gastric emptying at 180 minutes was 94%. IMPRESSION: NORMAL GASTRIC EMPTYING. TECHNICAL DOCUMENTATION: JOB ID: [id number] [employer]- All Rights Reserved
== END ==
LOC: RAD 07:24
PROVIDERS: ATTEND Internal Medicine Gastroenterology
DX: R10.13 Epigastric pain (principal)
CPT/HCPCS: 78264; A9541

== ENCOUNTER → 2016-12-08 | Outpatient (CLI) | payer MEDICARE, OTHER ==
--- NOTE | 2016-12-08 15:46 | RADIOLOGY REPORT (SQ) ---
EXAM DESCRIPTION: MRI ORBIT/FACIAL/NECK COMBO COMPLETED DATE/TIME: 12/08/2016 2:35 pm REASON FOR STUDY: ORBITAL MASS (H05.89) H05.89 OTHER DISORDERS OF ORBIT COMPARISON: Carotid Doppler 08/11/2016 MRI brain 08/02/2016 CT brain 06/30/2016 TECHNIQUE: Multiplanar imaging includes non-contrasted T1, T2, FLAIR, diffusion with ADC map and pos t gadolinium contrast sequences. Additional thin slice images with and without gadolinium contrast acquired of the orbits. Images stor ed on PACS. CONTRAST TYPE AND DOSE: 10 mL Multihance. RENAL FUNCTION: GFR > 60. LIMITATIONS: None. FINDINGS: ANATOMY: No anomalies. Normal vascular flow voids. Pituitary fossa normal. CSF SPACES: Normal in size and contour. CEREBRUM: Sulci and gyri normal in size and contour. Normal white matter signal on FLAIR imaging. N o hemorrhage. No edema, masses or mass effect. No enhancing lesions. POSTERIOR FOSSA: No signal alteration. No hemorrhage. No edema, masses or mass effect. Internal nicole tory canals, cerebello-pontine angles, mastoids normal. No enhancing lesions. DIFFUSION IMAGING: Negative for acute or sub-acute infarction. ORBITS: On the right side, an 8 x 6 x 7 mm well-circumscribed nodule is present in the intraconal fat , between the lateral rectus muscle and optic nerve. No significant mass effect on the optic nerve. No proptosis. No large flow voids within the mass. Signal characteristics are unchanged, similar t o brain parenchyma on T1 and T2 images, with avid gadolinium enhancement. Again, this is likely a sm all schwannoma or neurofibroma. Meningioma of the optic nerve sheath is possible but considered less likely, no dural tail is identified. MA angio very so Cici is also possible. Remainder of the orbits are otherwise unremarkable. Symmetric optic nerves, globes, and extraocular muscles and lacrimal apparatus. Benign-appearing CSF in the optic nerve sheaths, no ectasia. PARANASAL SINUSES: Mucous membrane thickening in the bilateral anterior ethmoid air cells. Small oscar unt of fluid in the right frontal sinus OTHER: No other significant finding. IMPRESSION: Brain MRI unremarkable. Stable 8 x 6 x 7 mm nodule in the right intraconal orbital fat. TECHNICAL DOCUMENTATION: JOB ID: [id number]- All Rights Reserved
== END ==
LOC: RAD 13:00
PROVIDERS: ATTEND Ophthalmology Ophthalmic Plastic and Reconstructive Surgery
DX: H05.89 Other disorders of orbit (principal)
CPT/HCPCS: 70543; A9577

== ENCOUNTER 2016-12-14 00:58 | Emergency (ER) | payer MEDICARE, OTHER ==
[2016-12-14 01:05] VITALS: BP 144/74
--- NOTE | 2016-12-14 02:11 | ER Document Report ---
ED General - General Chief Complaint: Chest Pain > 30 Stated Complaint: ABDOMINAL PAIN Time Seen by Provider: 12/14/16 01:57 Notes: Patient is an 81-year-old female presents with complaint of abdominal pain. She says is mainly epigastric and radiating to her left lower quadrant. This began after eating. She is is starting to improve. No diarrhea. No vomiting. No fevers. She has a history of this chronic recurrent pain. She is followed by GI doctor. She is followed by a GI physician in [facility]. She was seen for similar pain in October. She had a CT scan at that time which showed mesenteric panniculitis. She says this pain comes and goes and this is been ongoing for a long time. The initial triage note says chest pain however the patient denies any chest pain to me whatsoever. No blood in stool. TRAVEL OUTSIDE OF THE [place] IN LAST 30 DAYS: No - Related Data Allergies/Adverse Reactions: iodine [Iodine] Allergy (Verified 11/19/16 14:30) Hives Sulfa (Sulfonamide Antibiotics) Allergy (Verified 11/19/16 14:30) Pruritis aspirin [Aspirin] Adverse Reaction (Verified 11/19/16 14:30) Past Medical History - Social History Smoking Status: Unknown if Ever Smoked Frequency of alcohol use: None Drug Abuse: None Family History: Hypertension Patient has suicidal ideation: No Patient has homicidal ideation: No - Past Medical History Cardiac Medical History: Reports: Hx Hypertension Denies: Hx Coronary Artery Disease, Hx Heart Attack Pulmonary Medical History: Reports: Hx Bronchitis, Hx Pneumonia - 20 years ago Denies: Hx Asthma, Hx COPD Neurological Medical History: Denies: Hx Cerebrovascular Accident, Hx Seizures Renal/ Medical History: Denies: Hx Peritoneal Dialysis GI Medical History: Reports: Hx Gastroesophageal Reflux Disease, Hx Hiatal Hernia Musculoskeltal Medical History: Reports Hx Arthritis - Complete L knee replacement Psychiatric Medical History: Reports: Hx Depression Past Surgical History: Reports: Hx Abdominal Surgery, Hx Appendectomy, Hx Cholecystectomy, Hx Hysterectomy. Denies: Hx Pacemaker - Immunizations Hx Diphtheria, Pertussis, Tetanus Vaccination: Yes Hx Pneumococcal Vaccination: 02/28/06 Review of Systems - Review of Systems Notes: My Normal Review Basic REVIEW OF SYSTEMS: CONSTITUTIONAL : Denies fever, chills, or sweats. Denies recent illness. EENT: Denies eye, ear, throat, or mouth pain or symptoms. Denies nasal or sinus congestion. CARDIOVASCULAR: Denies chest pain. RESPIRATORY: Denies cough, cold, or chest congestion. Denies shortness of breath, difficulty breathing, or wheezing. GASTROINTESTINAL: Some abdominal pain. Denies nausea, vomiting, or diarrhea. GENITOURINARY: Denies difficulty urinating, painful urination, burning, frequency, or blood in urine. MUSCULOSKELETAL: Denies neck or back pain or joint pain or swelling. SKIN: Denies rash or skin lesions. NEUROLOGICAL: Denies altered mental status or loss of consciousness. Denies headache. Denies weakness or paralysis or loss of use of either side. Denies problems with gait or speech. Denies sensory or motor loss. ALL OTHER SYSTEMS REVIEWED AND NEGATIVE. Physical Exam - Vital signs Vitals: Temp Pulse Resp BP Pulse Ox 98.2 F 120 H 22 H 144/74 H 98 12/14/16 01:03 12/14/16 01:03 12/14/16 01:03 12/14/16 01:03 12/14/16 01:03 - Notes Notes: General Appearance: Well nourished, alert, cooperative, no acute distress, no obvious discomfort. Well-appearing. Vitals: reviewed, See vital signs table. Head: no swelling or tenderness to the head Eyes: PERRL, EOMI, Conjuctiva clear Mouth: No decreasd moisture Lungs: No wheezing, No rales, No rhonci, No accessory muscle use, good air exchange bilaterally. Heart: Normal rate, Regular rythm, No murmur, no rub Abdomen: Normal BS, soft, No rigidity, mild epigastric and left lower quadrant abdominal tenderness to palpation., No guarding, no rebound Extremities: strength 5/5 in all extremities, good pulses in all extremities, no swelling or tenderness in the extremities, no edema. Skin: warm, dry, appropriate color, no rash Neuro: speech clear, oriented x 3, normal affect, responds appropriately to questions. Course - Re-evaluation Re-evalutation: 12/14/16 03:07 Patient's laboratory evaluation is unremarkable. Patient says that her pain is completely subsided without any type of pharmaceutical intervention. Her and her both confirm that this pain is like her typical chronic recurring pain that she sometimes gets. Pain the patient's pain is completely resolved, is consistent with her chronic pain, and her labs are normal I feel that she is safe to be discharged home. Her vital signs are normalized as well. I encouraged her return to ER immediately if she has worsening pain or feels unwell. Patient agrees with plan will be discharged home. Dictation of this chart was performed using voice recognition software; therefore, there may be some unintended grammatical errors. - Vital Signs Vital signs: Temp Pulse Resp BP Pulse Ox 98.2 F 83 20 144/74 H 97 12/14/16 01:03 12/14/16 01:14 12/14/16 02:00 12/14/16 01:03 12/14/16 02:00 - Laboratory Result Diagrams: 12/14/16 02:10 12/14/16 02:10 Laboratory results interpreted by me: 12/14/16 12/14/16 02:10 02:10 Plt Count 135 L Seg Neuts % (Manual) 90 H Lymphocytes % (Manual) 3 L Monocytes % (Manual) 1 L Abs Neuts (Manual) 8.6 H Abs Lymphs (Manual) 0.3 L Potassium 3.4 L Glucose 134 H Discharge - Discharge Clinical Impression: Abdominal pain Qualifiers: Abdominal location: epigastric Qualified Code(s): R10.13 - Epigastric pain Condition: Good Disposition: HOME, SELF-CARE Additional Instructions: Your laboratory evaluation is unremarkable. You did not have an elevated white blood cell count. I suspect that this pain is again a continuation of your chronic recurrent pain. Please continue to follow-up closely with your GI physician. Please return to the ER immediately if you have fevers, worsening pain, vomiting, diarrhea, or feel unwell. Referrals: BALDEMAR DUARTE FNP [Primary Care Provider] - Follow up in 3-5 days
[2016-12-14 02:24] LABS: HEMATOCRIT 38.4 % (36.0-47.0); HGB HCT DIFFERENCE 0.6; MEAN CORPUSCULAR HEMOGLOBIN 29.6 pg (27.0-33.4); MEAN CORPUSCULAR HGB CONC 33.8 g/dL (32.0-36.0); MEAN CORPUSCULAR VOLUME 87 fl (80-97); RED BLOOD COUNT 4.39 10^6/uL (3.72-5.28); RED CELL DISTRIBUTION WIDTH 13.6 % (11.5-14.0); WHITE BLOOD COUNT 9.1 10^3/uL (4.0-10.5)
[2016-12-14 02:37] LABS: ALANINE AMINOTRANSFERASE 28 U/L (9-52); ALBUMIN 3.6 g/dL (3.5-5.0); ALKALINE PHOSPHATASE 68 U/L (38-126); ANION GAP 11 (5-19); ASPARTATE AMINO TRANSFERASE 22 U/L (14-36); BILIRUBIN,DIRECT 0.2 mg/dL (0.0-0.4); BILIRUBIN,TOTAL 0.7 mg/dL (0.2-1.3); BLOOD UREA NITROGEN 19 mg/dL (7-20); CALCIUM 9.6 mg/dL (8.4-10.2); CARBON DIOXIDE 26 mmol/L (22-30); CHLORIDE 106 mmol/L (98-107); CREATININE RESULT 0.78 mg/dL (0.52-1.25); GLUCOSE 134 mg/dL (75-110); LIPASE 26.8 U/L (23-300); POTASSIUM 3.4 mmol/L (3.6-5.0); SODIUM 143.2 mmol/L (137-145); TOTAL PROTEIN 6.3 g/dL (6.3-8.2)
[2016-12-14 02:52] LABS: BAND NEUTROPHILS % (MANUAL) 5 % (3-5); BASOPHILS % (MANUAL) 0 % (0-2); EOSINOPHILS % (MANUAL) 1 % (0-6); LYMPHOCYTES % (MANUAL) 3 % (13-45); TOTAL CELLS COUNTED 100
[2016-12-14 02:54] LABS: TOXIC VACUOLATION PRESENT
[2016-12-14 02:55] LABS: RBC MORPHOLOGY COMMENT NORMO-CYTIC/CHROMIC
--- NOTE | 2016-12-14 13:24 | EKG REPORT ---
SEVERITY:- ABNORMAL ECG - SINUS RHYTHM LEFT ANTERIOR FASCICULAR BLOCK CONSIDER LEFT VENTRICULAR HYPERTROPHY : Confirmed by: Rashmi Maynard MD 14-Dec-2016 13:24:06
== END 2016-12-14 03:15 | disposition home or self-care (01) ==
LOC: ER 00:58
DX: R10.13 Epigastric pain (principal); I10 Essential (primary) hypertension; Z87.19 Personal history of other diseases of the digestive system; Z88.2 Allergy status to sulfonamides; Z90.49 Acquired absence of other specified parts of digestive tract
CPT/HCPCS: 36415; 80053; 83690; 85025; 93005; 93010; 99285

== ENCOUNTER → 2017-05-02 | Outpatient (CLI) | payer MEDICARE, OTHER ==
--- NOTE | 2017-05-02 16:17 | RADIOLOGY REPORT (SQ) ---
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 TECHNIQUE: Multiplanar imaging includes non-contrasted T1, T2, FLAIR, diffusion with ADC map and pos t gadolinium contrast sequences. Additional thin slice images with and without gadolinium contrast a cquired of the orbits. Images stored on PACS. CONTRAST TYPE AND DOSE: 10 mL Multihance. RENAL FUNCTION: GFR > 60. LIMITATIONS: None. FINDINGS: ANATOMY: No anomalies. Normal vascular flow voids. Pituitary fossa normal. CSF SPACES: Normal in size and contour. CEREBRUM: Sulci and gyri normal in size and contour. Normal white matter signal on FLAIR imaging. N o hemorrhage. No edema, masses or mass effect. No enhancing lesions. POSTERIOR FOSSA: No signal alteration. No hemorrhage. No edema, masses or mass effect. Internal nicole tory canals, cerebello-pontine angles, mastoids normal. No enhancing lesions. DIFFUSION IMAGING: Negative for acute or sub-acute infarction. ORBITS: Stable enhancing mass in the intraconal fat of the right orbit, located between the optic ner ve and lateral rectus muscle. Current measurements 5.5 x 5.8 x 7.4 mm, essentially unchanged. Well- circumscribed with homogeneous enhancement. No mass effect upon the optic nerve or globe. Globes nor mal. Extraocular muscles and optic nerves normal. Orbital fat clear. No inflammatory changes or en hancement. PARANASAL SINUSES: No fluid levels. Mucosa normal. OTHER: No other significant finding. IMPRESSION: 1. STABLE SMALL ENHANCING MASS IN THE INTRACONAL FAT OF THE RIGHT ORBIT. LIKELY A NERVE SHEATH TUMOR OR POSSIBLY A MENINGIOMA. NO CHANGE. 2. UNREMARKABLE MRI OF THE BRAIN. TECHNICAL DOCUMENTATION: JOB ID: [id number]- All Rights Reserved Reading location - IP/workstation name: [email or web address]
== END ==
LOC: RAD 15:34
PROVIDERS: ATTEND Ophthalmology
DX: H05.89 Other disorders of orbit (principal)
CPT/HCPCS: 82565; 70543; A9577

== ENCOUNTER → 2017-08-10 | Outpatient (CLI) | payer MEDICARE, OTHER | LOC: HHS 09:10 | DX: Z12.83 Encounter for screening for malignant neoplasm of skin (principal) ==

== ENCOUNTER → 2017-11-18 | Outpatient (CLI) | payer MEDICARE, OTHER ==
--- NOTE | 2017-11-19 08:55 | RADIOLOGY REPORT (SQ) ---
EXAM DESCRIPTION: MRI ORBIT/FACIAL/NECK COMBO COMPLETED DATE/TIME: 11/18/2017 5:15 pm REASON FOR STUDY: OTHER DISORDER OF ORBIT H05.89 OTHER DISORDERS OF ORBIT COMPARISON: CT brain 06/30/2016 MRI orbits 12/08/2016, 05/02/2017 TECHNIQUE: Multiplanar imaging includes non-contrasted T1, T2, FLAIR, diffusion with ADC map and pos t gadolinium contrast sequences. Additional thin slice images with and without gadolinium contrast acquired of the orbits. Images stored on PACS. CONTRAST TYPE AND DOSE: 10 mL Dotarem. RENAL FUNCTION: Estimated GFR 53 LIMITATIONS: None. FINDINGS: ANATOMY: No developmental brain parenchymal anomalies. Normal vascular flow voids. Pituita ry fossa normal. CSF SPACES: Normal in size and contour. CEREBRUM: Sulci and gyri normal in size and contour. Normal white matter signal on FLAIR imaging. N o hemorrhage. No edema, masses or mass effect. No enhancing lesions. POSTERIOR FOSSA: No signal alteration. No hemorrhage. No edema, masses or mass effect. Internal nicole tory canals, cerebello-pontine angles, mastoids normal. No enhancing lesions. DIFFUSION IMAGING: Negative for acute or sub-acute infarction. ORBITS: In the right orbit, intraconal fat between the optic nerve and lateral rectus muscle, a well- circumscribed soft tissue signal nodule is present with minimal contrast enhancement measuring 7 by 5 mm size. This most likely represents a small schwannoma or neurofibroma. No adjacent abnormal intr insic signal or enhancement along the right optic nerve. No significant local mass effect. Orbits are otherwise unremarkable. Bilateral globes, optic nerves, extraocular muscles, lacrimal keith aratus normal. No left intraconal retrobulbar masses. PARANASAL SINUSES: No fluid levels. Mucosa normal. OTHER: No other significant finding. IMPRESSION: Stable 8 x 5 mm nodule in the right orbit intraconal fat, likely a small schwannoma or n eurofibroma. This benign appearing finding is unchanged from prior studies. TECHNICAL DOCUMENTATION: JOB ID: [id number] [email or web address]- All Rights Reserved Reading location - IP/workstation name: [email or web address]
== END ==
LOC: RAD 14:52
PROVIDERS: ATTEND Ophthalmology
DX: H05.89 Other disorders of orbit (principal)
CPT/HCPCS: 70543; 82565

== ENCOUNTER 2018-01-12 06:29 | Day surgery (SDC) | payer MEDICARE, OTHER ==
[~2018-01-12 06:29] MED LIST: KETOROLAC TROMETHAMINE 0.45% 4 DROP/0.4 ML DROPERETTE OD PRN
[2018-01-12] MEDS: TETRACAINE HCL 0.5% OPH SOLN 4 ML OD PRN ×2 (06:45→07:46)
[2018-01-12] MEDS: CYCLOPENTOLATE 0.2%/PHENYLEPHRINE 1% OPH SOLN 2 ML OD PRN ×3 (06:45→07:10)
[2018-01-12] MEDS: TROPICAMIDE 1% OPH SOLN 3 ML OD PRN ×3 (06:45→07:10)
[2018-01-12] MEDS: BESIFLOXACIN HCL 0.6% OPH SUSP 5 ML BOTTLE OD PRN ×3 (06:46→07:56)
[2018-01-12] MEDS ORDERED: MIDAZOLAM 2 MG/2 ML INJ ONE (06:53)
[2018-01-12] MEDS ORDERED: CHONDR SU A NA/HYALUR INTRAOC KIT (SURGICARE) ONE (07:08)
[2018-01-12] MEDS ORDERED: LIDOCAINE 1% INJ-PF (10 MG/ML) 30 ML SDV ONE (07:08)
[2018-01-12] MEDS ORDERED: EPINEPHRINE INJ/PF 1 MG/1 ML AMPULE ONE (07:08)
--- NOTE | 2018-01-12 19:07 | [facility] OPERATIVE REPORT E ---
[facility] Operative Report NAME: MARGARETTE CRUZ AGE: 82Y DATE OF SURGERY: 01/12/2018 ROOM: PREOPERATIVE DIAGNOSIS: CATARACT, RIGHT EYE. POSTOPERATIVE DIAGNOSIS: CATARACT, RIGHT EYE. OPERATION: Cataract extraction with insertion of an IOL of the right eye. SURGEON: YOUNG MATSON M.D. ANESTHESIA: Topical. PROCEDURE: After obtaining appropriate consent, the patient's right eye was prepped and draped in sterile fashion as well as the surgeon in a sterile manner and cataract surgery was started. First a paracentesis blade was used to make a side-port incision. Viscoelastic was used to inflate the anterior chamber. Next a 2.4 mm incision was made with a 2.4 mm blade, clear corneal temporally. A continuous capsulorrhexis was made using a cystotome and Utrata forceps. Following this hydrodissection was carried out to make the lens fully loose and mobile and it was rotated 90 degrees. Following this, a nqvgzi-klz-btfycch technique was used to phacoemulsify the lens with a CDE of 19.04. The remaining cortex was removed with irrigation/aspiration. Provisc was instilled into the capsular bag to inflate the bag. A SN60WF, 19.0 diopter lens was placed. The remaining viscoelastic material was removed with irrigation/aspiration. Following this, the incision was found to be watertight. Besivance was instilled into the eye and a protective shield was placed over the eye. The patient returned to the postoperative recovery in stable condition. DICTATING PHYSICIAN: YOUNG MATSON M.D. [id number] PHY#: [id number] ID: [id number] JOB#: [id number] ACCT: [id number] cc:YOUNG MATSON M.D. >
--- NOTE | 2018-01-12 19:12 | [facility] DISCHARGE SUMMARY E ---
[facility] Discharge Summary NAME: MARGARETTE CRUZ AGE: 82Y ADMITTED: 01/12/2018 DISCHARGED: 01/12/2018 HOSPITAL COURSE: This is an 82-year-old female who underwent cataract extraction of the right eye. DIAGNOSIS: CATARACT, RIGHT EYE. She underwent surgery because she was having trouble seeing television. DISCHARGE INSTRUCTIONS: She should be on a regular diet. No bending at her waist, no heavy lifting. She should use her Vigamox, ketorolac, and Predforte at 3 p.m. and 8 p.m. and sleep with a rigid shield. I will see her for her 1 day postoperative tomorrow. DICTATING PHYSICIAN: YOUNG MATSON M.D. [id number] PHY#: [id number] ID: [id number] JOB#: [id number] ACCT: [id number] cc:YOUNG MATSON M.D. >
== END 2018-01-12 08:45 | disposition home or self-care (01) ==
LOC: SC 06:29
PROVIDERS: ATTEND Internal Medicine
DX: H25.13 Age-related nuclear cataract, bilateral (principal); H05.9 Unspecified disorder of orbit; H35.3132 Nonexudative age-related macular degeneration, bilateral, intermediate dry stage; H52.4 Presbyopia; H16.223 Keratoconjunctivitis sicca, not specified as Sjogren's, bilateral; I10 Essential (primary) hypertension; E03.9 Hypothyroidism, unspecified; K21.9 Gastro-esophageal reflux disease without esophagitis; M19.90 Unspecified osteoarthritis, unspecified site; Z88.2 Allergy status to sulfonamides; Z88.6 Allergy status to analgesic agent; Z88.8 Allergy status to other drugs, medicaments and biological substances; Z79.899 Other long term (current) drug therapy
CPT/HCPCS: 66984; 82962; V2632; J2250; J3490 ×3; A9270; J0171; 142

== ENCOUNTER 2018-03-07 06:19 | Day surgery (SDC) | payer MEDICARE, OTHER ==
[~2018-03-07 06:19] MED LIST changes: -KETOROLAC TROMETHAMINE 0.45% 4 DROP/0.4 ML DROPERETTE OD PRN; +KETOROLAC TROMETHAMINE 0.45% 4 DROP/0.4 ML DROPERETTE OS PRN
[2018-03-07] MEDS: TROPICAMIDE 1% OPH SOLN 3 ML OS PRN ×3 (06:55→07:15)
[2018-03-07] MEDS: CYCLOPENTOLATE 0.2%/PHENYLEPHRINE 1% OPH SOLN 2 ML OS PRN ×3 (06:55→07:15)
[2018-03-07] MEDS: TETRACAINE HCL 0.5% OPH SOLN 4 ML OS PRN ×4 (06:56→07:42)
[2018-03-07] MEDS: BESIFLOXACIN HCL 0.6% OPH SUSP 5 ML BOTTLE OS PRN ×4 (06:56→07:53)
[2018-03-07] MEDS ORDERED: EPINEPHRINE INJ/PF 1 MG/1 ML AMPULE ONE (07:04)
[2018-03-07] MEDS ORDERED: LIDOCAINE 1% INJ-PF (10 MG/ML) 30 ML SDV ONE (07:04)
[2018-03-07] MEDS ORDERED: CHONDR SU A NA/HYALUR INTRAOC KIT (SURGICARE) ONE (07:04)
[2018-03-07] MEDS ORDERED: MIDAZOLAM 2 MG/2 ML INJ ONE (07:12)
--- NOTE | 2018-03-08 08:32 | [facility] DISCHARGE SUMMARY E ---
[facility] Discharge Summary NAME: MARGARETTE CRUZ AGE: 82Y ADMITTED: 03/07/2018 DISCHARGED: 03/07/2018 FINAL DIAGNOSIS: CATARACT, LEFT EYE. HISTORY/CLINIC COURSE: This is a 82-year-old female who underwent cataract extraction of her left eye without complication, woke up in postoperative recovery in stable condition. She underwent surgery because she was having difficulty seeing small print. Patient is to be on a regular diet. No bending at the waist, no heavy lifting. Patient should use the Vigamox, PredForte, Ketorolac at 3 p.m. and 8 p.m., and sleep with a rigid shield. I will see her for 1 day postoperative tomorrow. DICTATING PHYSICIAN: YOUNG MATSON M.D. [id number] PHY#: [id number] ID: [id number] JOB#: [id number] ACCT: [id number] cc:YOUNG MATSON M.D. >
--- NOTE | 2018-03-08 08:32 | [facility] OPERATIVE REPORT E ---
[facility] Operative Report NAME: MARGARETTE CRUZ AGE: 82Y DATE OF SURGERY: 03/07/2018 ROOM: PREOPERATIVE DIAGNOSIS: CATARACT, LEFT EYE. POSTOPERATIVE DIAGNOSIS: CATARACT, LEFT EYE. OPERATION: Cataract extraction with insertion of an IOL of the left eye. SURGEON: YOUNG MATSON M.D. ANESTHESIA: Topical. PROCEDURE: After obtaining appropriate consent, the patient's left eye was prepped and draped in sterile fashion as well as the surgeon in a sterile manner and cataract surgery was started. First a paracentesis blade was used to make a side-port incision. Viscoelastic was used to inflate the anterior chamber. Next a 2.4 mm incision was made with a 2.4 mm blade, clear corneal temporally. A continuous capsulorrhexis was made using a cystotome and Utrata forceps. Following this hydrodissection was carried out to make the lens fully loose and mobile and it was rotated 90 degrees. Following this, a dluuys-tye-usbbshb technique was used to phacoemulsify the lens with a CDE of 19.11. The remaining cortex was removed with irrigation/aspiration. Provisc was instilled into the capsular bag to inflate the bag. A SN60WF, 19.0 diopter lens was placed. The remaining viscoelastic material was removed with irrigation/aspiration. Following this, the incision was found to be watertight. Besivance was instilled into the eye and a protective shield was placed over the eye. The patient returned to the postoperative recovery in stable condition. DICTATING PHYSICIAN: YOUNG MASTON M.D. [id number] PHY#: [id number] ID: [id number] JOB#: [id number] ACCT: [id number] cc:YOUNG MATSON M.D. >
== END 2018-03-07 08:38 | disposition home or self-care (01) ==
LOC: SC 06:19
PROVIDERS: ATTEND Internal Medicine
DX: H25.12 Age-related nuclear cataract, left eye (principal); I10 Essential (primary) hypertension; Z79.899 Other long term (current) drug therapy; E07.9 Disorder of thyroid, unspecified; Z88.2 Allergy status to sulfonamides
CPT/HCPCS: 66984; V2632; J2250; J3490 ×3; A9270; J0171; 142

== ENCOUNTER 2018-05-01 10:32 | Emergency (ER) | payer MEDICARE, OTHER ==
--- NOTE | 2018-05-01 11:12 | ER Document Report ---
ED Medical Screen (RME) - General Chief Complaint: Abdominal Pain Stated Complaint: ABDOMINAL PAIN Time Seen by Provider: 05/01/18 11:08 Primary Care Provider: MARYSE SWENSON PA-C [Primary Care Provider] - Follow up as needed Notes: Patient is a 83-year-old female that presents to the emergency department for chief complaint of left upper quadrant left lower quadrant abdominal pain. States she has been constipated, has a history of diverticulitis and is worried she is having a flare, she also has a history of C. difficile. But she has not been having any diarrhea.. ROS: Other than noted above, the 12 point review of systems was reviewed with the patient and were negative, all pertinent findings are included in the HPI. PHYSICAL EXAMINATION: Vital signs reviewed. GENERAL: Elderly female, appears uncomfortable HEAD: Atraumatic, normocephalic. EYES: Pupils equal round extraocular movements intact, conjunctiva are normal. ENT: Nares patent NECK: Normal range of motion CV: Heart regular rate and rhythm LUNGS: No respiratory distress Abdomen: Left lower quadrant tenderness with palpation. Musculoskeletal: Normal range of motion NEUROLOGICAL: Normal speech PSYCH: Normal mood, normal affect. MDM: Patient seen and examined for rapid initial assessment. Vital signs reviewed. A comprehensive ED assessment and evaluation of the patient, analysis of test results and completion of the medical decision making process will be conducted by additional ED providers. *Note is created using voice recognition software and may contain spelling, syntax or grammatical errors. TRAVEL OUTSIDE OF THE [place] IN LAST 30 DAYS: No - Related Data Allergies/Adverse Reactions: metoclopramide Allergy (Unknown, Verified 05/01/18 10:33) iodine [Iodine] Allergy (Verified 05/01/18 10:33) Hives Sulfa (Sulfonamide Antibiotics) Allergy (Verified 05/01/18 10:33) Pruritis aspirin [Aspirin] Adverse Reaction (Verified 05/01/18 10:33) Past Medical History - Past Medical History Cardiac Medical History: Reports: Hx Hypertension Denies: Hx Coronary Artery Disease, Hx Heart Attack Pulmonary Medical History: Reports: Hx Bronchitis, Hx Pneumonia - 20 years ago Denies: Hx Asthma, Hx COPD Neurological Medical History: Denies: Hx Cerebrovascular Accident, Hx Seizures Renal/ Medical History: Denies: Hx Peritoneal Dialysis GI Medical History: Reports: Hx Gastroesophageal Reflux Disease, Hx Hiatal Hernia - Had repair. Denies: Hx Hepatitis, Hx Ulcer Musculoskeltal Medical History: Reports Hx Arthritis - Complete L knee replacement Psychiatric Medical History: Reports: Hx Depression Infectious Medical History: Denies: Hx Hepatitis Past Surgical History: Reports: Hx Abdominal Surgery, Hx Appendectomy, Hx Cholecystectomy, Hx Hysterectomy. Denies: Hx Mastectomy, Hx Open Heart Surgery, Hx Pacemaker - Immunizations Hx Diphtheria, Pertussis, Tetanus Vaccination: Yes Physical Exam - Vital signs Vitals: Temp Pulse Resp BP Pulse Ox 98.0 F 80 16 123/63 100 05/01/18 10:50 05/01/18 10:50 05/01/18 10:50 05/01/18 10:50 05/01/18 10:50 Course - Vital Signs Vital signs: Temp Pulse Resp BP Pulse Ox 98.0 F 80 16 123/63 100 05/01/18 10:50 05/01/18 10:50 05/01/18 11:05 05/01/18 10:50 05/01/18 10:50 Doctor's Discharge - Discharge Referrals: MARYSE SWENSON PA-C [Primary Care Provider] - Follow up as needed
[2018-05-01] MEDS ORDERED: NORMAL SALINE 500 ML IV ONE (11:14)
[2018-05-01] MEDS ORDERED: ONDANSETRON HCL INJ/PF 4 MG/2 ML SDV IV ONE (11:14)
[2018-05-01] MEDS ORDERED: FENTANYL CITRATE INJ/PF 100 MCG/2 ML AMPUL IV ONE (11:14)
[2018-05-01 11:50] LABS: ABSOLUTE BASOPHILS # (AUTO) 0.1 10^3/uL (0.0-0.2); ABSOLUTE EOSINOPHILS # (AUTO) 0.1 10^3/uL (0.0-0.6); ABSOLUTE LYMPHOCYTES (AUTO) 1.2 10^3/uL (0.5-4.7); ABSOLUTE MONOCYTES (AUTO) 0.8 10^3/uL (0.1-1.4); ABSOLUTE NEUT (AUTO) 9.8 10^3/uL (1.7-8.2); BASOPHILS % (AUTO) 0.7 % (0-2); EOSINOPHILS % (AUTO) 0.4 % (0-6); HEMATOCRIT 43.9 % (36.0-47.0); HEMOGLOBIN 14.8 g/dL (12.0-15.5); LYMPHOCYTES % (AUTO) 10.2 % (13-45); MEAN CORPUSCULAR HEMOGLOBIN 29.5 pg (27.0-33.4); MEAN CORPUSCULAR HGB CONC 33.7 g/dL (32.0-36.0); MEAN CORPUSCULAR VOLUME 87 fl (80-97); MONOCYTES % (AUTO) 6.7 % (3-13); PLATELET COUNT 267 10^3/uL (150-450); RED BLOOD COUNT 5.02 10^6/uL (3.72-5.28); RED CELL DISTRIBUTION WIDTH 13.2 % (11.5-14.0); TOTAL CELLS COUNTED % (AUTO) 100 %
[2018-05-01 12:02] LABS: ALANINE AMINOTRANSFERASE 17 U/L (9-52); ALBUMIN 4.6 g/dL (3.5-5.0); ALKALINE PHOSPHATASE 97 U/L (38-126); ANION GAP 10 (5-19); APPEARANCE,URINE CLOUDY; ASPARTATE AMINO TRANSFERASE 28 U/L (14-36); BILIRUBIN,DIRECT 0.1 mg/dL (0.0-0.4); BILIRUBIN,TOTAL 0.9 mg/dL (0.2-1.3); BILIRUBIN,URINE MODERATE (NEGATIVE); BLOOD UREA NITROGEN 18 mg/dL (7-20); CALCIUM 10.2 mg/dL (8.4-10.2); CARBON DIOXIDE 31 mmol/L (22-30); CHLORIDE 99 mmol/L (98-107); GLUCOSE 123 mg/dL (75-110); GLUCOSE, URINE NEGATIVE (NEGATIVE); KETONES,URINE TRACE mg/dL (NEGATIVE); LEUKOCYTE ESTERASE,URINE TRACE (NEGATIVE); LIPASE 163.2 U/L (23-300); NITRITE,URINE NEGATIVE (NEGATIVE); POTASSIUM 4.1 mmol/L (3.6-5.0); PROTEIN,URINE 30 mg/dL (NEGATIVE); SODIUM 140.2 mmol/L (137-145); TOTAL PROTEIN 8.5 g/dL (6.3-8.2); URINE SPECIFIC GRAVITY 1.033
[2018-05-01 12:10] LABS: COLOR,URINE DARK YELLOW
--- NOTE | 2018-05-01 13:01 | RADIOLOGY REPORT (SQ) ---
EXAM DESCRIPTION: CT ABD/PELVIS NO ORAL OR IV COMPLETED DATE/TIME: 05/01/2018 12:36 pm REASON FOR STUDY: llq abdominal pain COMPARISON: 11/19/2016 TECHNIQUE: CT scan of the abdomen and pelvis performed without intravenous or oral contrast. Images reviewed with lung, soft tissue, and bone windows. Reconstructed coronal and sagittal MPR images revi ewed. All images stored on PACS. All CT scanners at this facility use dose modulation, iterative reconstruction, and/or weight based d osing when appropriate to reduce radiation dose to as low as reasonably achievable (ALARA). [facility]: Dose Right [facility]: CareDose [facility]: Dose Right [facility]: Teradose 4D [facility]: [employer] RADIATION DOSE: CT Rad equipment meets quality standard of care and radiation dose reduction techniq ues were employed. CTDIvol: 4.9 mGy. DLP: 252 mGy-cm.mGy. LIMITATIONS: None. FINDINGS: LOWER CHEST: No significant findings. No nodules or infiltrates. NON-CONTRASTED LIVER, SPLEEN, ADRENALS: Evaluation limited by lack of IV contrast. No identified sign ificant masses. PANCREAS: No masses. No peripancreatic inflammatory changes. GALLBLADDER: Surgically absent. RIGHT KIDNEY AND URETER: No suspicious masses. Assessment limited by lack of IV contrast. No signif icant calcifications. No hydronephrosis or hydroureter. LEFT KIDNEY AND URETER: No suspicious masses. Assessment limited by lack of IV contrast. No signifi cant calcifications. No hydronephrosis or hydroureter. AORTA AND RETROPERITONEUM: No aneurysm. No retroperitoneal masses or adenopathy. BOWEL AND PERITONEAL CAVITY: Prior gastric bypass. Mesenteric inflammation sigmoid colon segment con taining diverticula. APPENDIX: Surgically absent. PELVIS, BLADDER, AND ABDOMINAL WALL:No abnormal masses. No free fluid. Bladder normal. BONES: Nothing acute. OTHER: No other significant finding. IMPRESSION: Sigmoid diverticulitis. COMMENT: Quality ID # [id number]: Final reports with documentation of one or more dose reduction techniques (e.g., Automated exposure control, adjustment of the mA and/or kV according to patient size, use of iterative reconstruction technique) TECHNICAL DOCUMENTATION: JOB ID: [id number] [employer]- All Rights Reserved Reading location - IP/workstation name: [email or web address]
--- NOTE | 2018-05-01 13:32 | ER Document Report ---
Addendum entered and electronically signed by MEGHA GIANG PA-C 05/01/18 14:02: Discharge - Discharge Clinical Impression: Diverticulitis Condition: Stable Disposition: HOME, SELF-CARE Instructions: Augmentin ([facility]), Diverticulitis ([facility]) Additional Instructions: Maintain adequate fluid and food intake [place] diet (B.R.A.T.) Bananas, rice, apples, toast, etc Zofran as needed tylenol if needed Monitor for any worsening symptoms Make sure you are staying hydrated enough to urinate and have normal BM's Recheck with your PCM in 2-3 days Consider consult with Gastroenterology for ongoing/worsening symptoms Return to the ED with any worsening symptoms and/or development of fever, headache, chest pain, palpitations, syncope, shortness of breath, trouble breathing, abdominal pain, n/v/d, blood in stool/urine, weakness, or other worsening symptoms that are concerning to you. Prescriptions: Amox Tr/Potassium Clavulanate [Augmentin 875-125 Tablet] 1 tab PO TID 10 Days #30 tablet Hydrocodone/Acetaminophen [[place] 5-325 mg Tablet] 1 tab PO TID #10 tablet Ondansetron [Zofran Odt 4 mg Tablet] 1 - 2 tab PO Q4H PRN #10 tab.rapdis PRN Reason: For Nausea/Vomiting Referrals: MARYSE SWENSON PA-C [Primary Care Provider] - Follow up as needed ADAN SCHMITZ MD [ACTIVE STAFF] - Follow up as needed Original Note: ED General - General Chief Complaint: Abdominal Pain Stated Complaint: ABDOMINAL PAIN Time Seen by Provider: 05/01/18 11:08 Primary Care Provider: MARYSE SWENSON PA-C [Primary Care Provider] - Follow up as needed TRAVEL OUTSIDE OF THE [place] IN LAST 30 DAYS: No - HPI Notes: Patient is an 83-year-old female with a history of hypertension, IBS, diverticular disease, and other chronic GI issues who presents emergency department complaining of left lower quadrant abdominal pain times 5 days. Patient states that she did have an episode of nausea with the pain, but has been able to tolerate p.o. without difficulty at home. No episodes of vomiting. She is urinating normally. Patient states that she has felt somewhat constipated recently, but did have a bowel movement yesterday. She has no other concerns or complaints. Patient reports having diverticulitis in the past as well. Denies any headache, fever, URI, sore throat, chest pain, palpitations, syncope, cough, shortness of breath, wheeze, dyspnea, nausea/vomiting/diarrhea, urinary retention, dysuria, hematuria, back pain, or rash. - Related Data Allergies/Adverse Reactions: metoclopramide Allergy (Unknown, Verified 05/01/18 10:33) iodine [Iodine] Allergy (Verified 05/01/18 10:33) Hives Sulfa (Sulfonamide Antibiotics) Allergy (Verified 05/01/18 10:33) Pruritis aspirin [Aspirin] Adverse Reaction (Verified 05/01/18 10:33) Past Medical History - Social History Smoking Status: Never Smoker Chew tobacco use (# tins/day): No Frequency of alcohol use: None Drug Abuse: None Family History: Hypertension Patient has suicidal ideation: No Patient has homicidal ideation: No - Past Medical History Cardiac Medical History: Reports: Hx Hypertension Denies: Hx Coronary Artery Disease, Hx Heart Attack Pulmonary Medical History: Reports: Hx Bronchitis, Hx Pneumonia - 20 years ago Denies: Hx Asthma, Hx COPD Neurological Medical History: Denies: Hx Cerebrovascular Accident, Hx Seizures Renal/ Medical History: Denies: Hx Peritoneal Dialysis GI Medical History: Reports: Hx Gastroesophageal Reflux Disease, Hx Hiatal Hernia - Had repair. Denies: Hx Hepatitis, Hx Ulcer Musculoskeletal Medical History: Reports Hx Arthritis - Complete L knee replacement Psychiatric Medical History: Reports: Hx Depression Infectious Medical History: Denies: Hx Hepatitis Past Surgical History: Reports: Hx Abdominal Surgery, Hx Appendectomy, Hx Ch olecystectomy, Hx Hysterectomy. Denies: Hx Mastectomy, Hx Open Heart Surgery, Hx Pacemaker - Immunizations Hx Diphtheria, Pertussis, Tetanus Vaccination: Yes Hx Pneumococcal Vaccination: 02/28/06 Review of Systems - Review of Systems -: Yes All other systems reviewed and negative Physical Exam - Vital signs Vitals: Temp Pulse Resp BP Pulse Ox 98.0 F 80 16 123/63 100 05/01/18 10:50 05/01/18 10:50 05/01/18 10:50 05/01/18 10:50 05/01/18 10:50 - Notes Notes: PHYSICAL EXAMINATION: GENERAL: Well-appearing, well-nourished and in no acute distress. HEAD: Atraumatic, normocephalic. EYES: Pupils equal round and reactive to light, extraocular movements intact, sclera anicteric, conjunctiva are normal. ENT: Nares patent and without discharge. oropharynx clear without exudates. No tonsilar hypertrophy or erythema. Moist mucous membranes. NECK: Normal range of motion, supple without lymphadenopathy LUNGS: Breath sounds clear to auscultation bilaterally and equal. No wheezes rales or rhonchi. HEART: Regular rate and rhythm without murmurs, rubs, gallops. ABDOMEN: Soft, nondistended abdomen. No guarding, no rebound. No masses appreciated. Normal bowel sounds present. No CVA tenderness bilaterally. LLQ tenderness. Musculoskeletal: FROM to passive/active. Strength 5+/5. Extremities: No cyanosis, clubbing, or edema b/l. Peripheral pulses 2+. Capillary refill less than 3 seconds. NEUROLOGICAL: Cranial nerves grossly intact. Normal speech, normal gait. PSYCH: Normal mood, normal affect. SKIN: Warm, Dry, normal turgor, no rashes or lesions noted. Course - Re-evaluation Re-evalutation: 05/01/18 13:30 Patient is an afebrile, well-hydrated, 83-year-old female who presents the emergency department with diverticulitis. Vitals are acceptable without significant tachycardia, tachypnea, or hypoxia. Patient is nontoxic-appearing and is tolerating p.o. without difficulty. See lab results. I did review with Dr. Rodriguez who is in agreement with dispo to home on augmentin based on her H&P/results today. No further labs or imaging warranted. Low suspicion/risk for acute appendicitis, bowel obstruction, acute cholecystitis, acute cholangitis, perforated diverticulitis, incarcerated hernia, pancreatitis, perforated ulcer, peritonitis, sepsis, pelvic inflammatory disease, ectopic , tubo-ovarian abscess, ovarian torsion, or other systemic emergent condition at this time. Patient is aware that her condition can change from initial presentation and she needs to monitor symptoms closely and seek medical attention if any acute changes. Conservative measures otherwise for symptoms. Recheck with your PCM in 2-3 days. Consider consult with a concierge. Return to the ED with any worsening/concerning symptoms otherwise as reviewed in discharge. Patient is in agreement. - Vital Signs Vital signs: Temp Pulse Resp BP Pulse Ox 98.0 F 80 16 123/63 100 05/01/18 10:50 05/01/18 10:50 05/01/18 11:05 05/01/18 10:50 05/01/18 10:50 - Laboratory Result Diagrams: 05/01/18 11:37 05/01/18 11:37 Laboratory results interpreted by me: 05/01/18 05/01/18 05/01/18 11:37 11:37 11:37 WBC 12.0 H Seg Neutrophils % 82.0 H Lymphocytes % 10.2 L Absolute Neutrophils 9.8 H Carbon Dioxide 31 H Est GFR ( Amer) 57 L Est GFR (Non-Af Amer) 47 L Glucose 123 H Total Protein 8.5 H Urine Protein 30 H Urine Ketones TRACE H Urine Bilirubin MODERATE H Urine Urobilinogen 4.0 H Ur Leukocyte Esterase TRACE H Discharge - Discharge Clinical Impression: Diverticulitis Condition: Stable Disposition: HOME, SELF-CARE Instructions: Diverticulitis ([facility]), Augmentin ([facility]) Additional Instructions: Maintain adequate fluid and food intake [place] diet (B.R.A.T.) Bananas, rice, apples, toast, etc Zofran as needed tylenol if needed Monitor for any worsening symptoms Make sure you are staying hydrated enough to urinate and have normal BM's Recheck with your PCM in 2-3 days Consider consult with Gastroenterology for ongoing/worsening symptoms Return to the ED with any worsening symptoms and/or development of fever, headache, chest pain, palpitations, syncope, shortness of breath, trouble breathing, abdominal pain, n/v/d, blood in stool/urine, weakness, or other worsening symptoms that are concerning to you. Prescriptions: Amox Tr/Potassium Clavulanate [Augmentin 875-125 Tablet] 1 tab PO TID 10 Days #30 tablet Ondansetron [Zofran Odt 4 mg Tablet] 1 - 2 tab PO Q4H PRN #10 tab.rapdis PRN Reason: For Nausea/Vomiting Referrals: MARYSE SWENSON PA-C [Primary Care Provider] - Follow up as needed ADAN SCHMITZ MD [ACTIVE STAFF] - Follow up as needed
[2018-05-01 13:41] VITALS: BP 110/54
== END 2018-05-01 14:05 | disposition home or self-care (01) ==
LOC: ER 10:32
DX: K57.92 Diverticulitis of intestine, part unspecified, without perforation or abscess without bleeding (principal); R10.9 Unspecified abdominal pain; K21.9 Gastro-esophageal reflux disease without esophagitis; Z90.49 Acquired absence of other specified parts of digestive tract; Z90.710 Acquired absence of both cervix and uterus
CPT/HCPCS: 99284; 96361; 96374; 96375; 36415; 83690; 85025; 80053; 81001; 74176; J3010; J2405; J7040

== ENCOUNTER 2018-05-27 11:12 | Emergency (ER) | payer MEDICARE, OTHER ==
[2018-05-27] MEDS ORDERED: ONDANSETRON HCL INJ/PF 4 MG/2 ML SDV IV ONE (11:47)
[2018-05-27] MEDS ORDERED: MORPHINE SULFATE 10 MG/ML INJ IV ONE (11:47)
[2018-05-27] MEDS ORDERED: DICYCLOMINE HCL INJ 20 MG/2 ML AMPULE IM ONE (11:48)
[2018-05-27] MEDS ORDERED: NORMAL SALINE 500 ML IV ONE (12:00)
[2018-05-27 13:00] LABS: ABSOLUTE LYMPHOCYTES (AUTO) 0.8 10^3/uL (0.5-4.7); ABSOLUTE MONOCYTES (AUTO) 0.8 10^3/uL (0.1-1.4); BASOPHILS % (AUTO) 0.3 % (0-2); EOSINOPHILS % (AUTO) 0.2 % (0-6); HEMATOCRIT 39.1 % (36.0-47.0); HEMOGLOBIN 13.2 g/dL (12.0-15.5); LYMPHOCYTES % (AUTO) 6.5 % (13-45); MEAN CORPUSCULAR HEMOGLOBIN 29.1 pg (27.0-33.4); MEAN CORPUSCULAR HGB CONC 33.7 g/dL (32.0-36.0); MEAN CORPUSCULAR VOLUME 86 fl (80-97); MONOCYTES % (AUTO) 6.4 % (3-13); PLATELET COUNT 185 10^3/uL (150-450); RED BLOOD COUNT 4.53 10^6/uL (3.72-5.28); RED CELL DISTRIBUTION WIDTH 13.3 % (11.5-14.0); SEGMENTED NEUTROPHILS % (AUTO) 86.6 % (42-78); TOTAL CELLS COUNTED % (AUTO) 100 %; WHITE BLOOD COUNT 12.7 10^3/uL (4.0-10.5)
[2018-05-27 13:20] LABS: ALANINE AMINOTRANSFERASE 14 U/L (9-52); ALBUMIN 3.5 g/dL (3.5-5.0); ALKALINE PHOSPHATASE 71 U/L (38-126); ANION GAP 11 (5-19); ASPARTATE AMINO TRANSFERASE 22 U/L (14-36); BILIRUBIN,DIRECT 0.3 mg/dL (0.0-0.4); BILIRUBIN,TOTAL 1.2 mg/dL (0.2-1.3); BLOOD UREA NITROGEN 20 mg/dL (7-20); CALCIUM 9.7 mg/dL (8.4-10.2); CARBON DIOXIDE 22 mmol/L (22-30); CHLORIDE 105 mmol/L (98-107); GLUCOSE 119 mg/dL (75-110); LIPASE 30.7 U/L (23-300); POTASSIUM 3.6 mmol/L (3.6-5.0); SODIUM 137.9 mmol/L (137-145); TOTAL PROTEIN 6.5 g/dL (6.3-8.2)
[2018-05-27] MEDS ORDERED: MAG HYDROX/AL HYDROX/SIMETH SUSP 30 ML UDCUP PO ONE (13:27)
[2018-05-27] MEDS ORDERED: LIDOCAINE 2% VISCOUS SOLN 20 ML UDCUP PO ONE (13:28)
[2018-05-27] MEDS ORDERED: FAMOTIDINE INJ/PF 20 MG/2 ML SDV IV ONE (13:29)
--- NOTE | 2018-05-27 13:33 | ER Document Report ---
ED General - General Chief Complaint: Abdominal Pain Stated Complaint: ABDOMINAL PAIN Time Seen by Provider: 05/27/18 11:30 Primary Care Provider: DEB WILDE MD [Primary Care Provider] - Follow up as needed TRAVEL OUTSIDE OF THE [place] IN LAST 30 DAYS: No - HPI Notes: Patient is an 83-year-old female with a known history of IBS who presents to the emergency department for evaluation of abdominal pain. She points to the epigastric region. She states she has had constipation recently but has now switched to diarrhea. She was treating her constipation. She states she has had this pain for 50 years but is been worse over the. She denies any fevers or chills. She had nausea but no emesis. No blood in her stool. No other acute complaints or concerns. - Related Data Allergies/Adverse Reactions: metoclopramide Allergy (Unknown, Verified 05/01/18 10:33) iodine [Iodine] Allergy (Verified 05/01/18 10:33) Hives Sulfa (Sulfonamide Antibiotics) Allergy (Verified 05/01/18 10:33) Pruritis aspirin [Aspirin] Adverse Reaction (Verified 05/01/18 10:33) Past Medical History - General Information source: Patient - Social History Smoking Status: Never Smoker Drug Abuse: None Family History: Hypertension Patient has suicidal ideation: No Patient has homicidal ideation: No - Past Medical History Cardiac Medical History: Reports: Hx Hypertension Denies: Hx Coronary Artery Disease, Hx Heart Attack Pulmonary Medical History: Reports: Hx Bronchitis, Hx Pneumonia - 20 years ago Denies: Hx Asthma, Hx COPD Neurological Medical History: Denies: Hx Cerebrovascular Accident, Hx Seizures Renal/ Medical History: Denies: Hx Peritoneal Dialysis GI Medical History: Reports: Hx Gastroesophageal Reflux Disease, Hx Hiatal Hernia - Had repair. Denies: Hx Hepatitis, Hx Ulcer Musculoskeletal Medical History: Reports Hx Arthritis - Complete L knee replace ment Psychiatric Medical History: Reports: Hx Depression Infectious Medical History: Denies: Hx Hepatitis Past Surgical History: Reports: Hx Abdominal Surgery, Hx Appendectomy, Hx Cholecystectomy, Hx Hysterectomy. Denies: Hx Mastectomy, Hx Open Heart Surgery, Hx Pacemaker - Immunizations Hx Diphtheria, Pertussis, Tetanus Vaccination: Yes Hx Pneumococcal Vaccination: 02/28/06 Review of Systems - Review of Systems Constitutional: No symptoms reported EENT: No symptoms reported Cardiovascular: No symptoms reported Respiratory: No symptoms reported Gastrointestinal: See HPI Genitourinary: No symptoms reported Female Genitourinary: No symptoms reported Musculoskeletal: No symptoms reported Skin: No symptoms reported Neurological/Psychological: No symptoms reported Physical Exam - Vital signs Vitals: Temp Pulse Resp BP Pulse Ox 97.5 F 98 18 115/59 L 96 05/27/18 11:18 05/27/18 11:18 05/27/18 11:18 05/27/18 11:18 05/27/18 11:18 - Notes Notes: Vital signs reviewed, please refer to chart. Patient is normocephalic, atraumatic. Pupils equal round, reactive to light. Neck is supple without meningismus. Heart is regular rate and rhythm. Lungs are clear to auscultation bilaterally. Abdomen is soft, moderate epigastric tenderness to palpation without rebound or guarding, normoactive bowel sounds throughout. Extremities without cyanosis, clubbing. Peripheral pulses are equal. Skin is warm and dry. Patient is awake, alert, neurological exam is nonfocal. Course - Re-evaluation Re-evalutation: 05/27/18 14:40 Patient presents to the emergency department for evaluation of abdominal pain. This is not new pain is just worse. She has a history of IBS. She states she has had similar pain off and on for 50 years. Laboratory investigations were unremarkable. Serial abdominal exams revealed mild tenderness but certainly no surgical findings. She was feeling improved after medication here. We will go ahead and send her home with nausea medication and a small amount of pain medication. She is given GI referral, is to return to the ED with worsening or new concerning symptoms of any sort. - Vital Signs Vital signs: Temp Pulse Resp BP Pulse Ox 97.2 F 90 16 107/75 100 05/27/18 11:28 05/27/18 11:28 05/27/18 11:43 05/27/18 11:28 05/27/18 11:43 - Laboratory Result Diagrams: 05/27/18 12:52 05/27/18 12:52 Laboratory results interpreted by me: 05/27/18 05/27/18 05/27/18 12:52 12:52 13:40 WBC 12.7 H Seg Neutrophils % 86.6 H Lymphocytes % 6.5 L Absolute Neutrophils 11.0 H Est GFR (Non-Af Amer) 55 L Glucose 119 H Urine Protein 100 H Urine Ketones 80 H Urine Bilirubin SMALL H Urine Urobilinogen 4.0 H Ur Leukocyte Esterase TRACE H Discharge - Discharge Clinical Impression: Generalized abdominal pain, Nausea and vomiting Condition: Stable Disposition: HOME, SELF-CARE Instructions: Abdominal Pain ([facility]), Vomiting ([facility]) Additional Instructions: Clear liquids, advance slowly to bland diet. Take medications as prescribed. Follow-up with gastroenterology. Return to the emergency department with worsening or new concerning symptoms. Referrals: DEB WILDE MD [Primary Care Provider] - Follow up as needed DA MELTON MD [ACTIVE STAFF] - Follow up as needed YAHIR LOPEZ MD [ACTIVE STAFF] - Follow up as needed
[2018-05-27 14:30] LABS: APPEARANCE,URINE SLIGHTLY-CLOUDY; BILIRUBIN,URINE SMALL (NEGATIVE); COLOR,URINE AMBER; GLUCOSE, URINE NEGATIVE (NEGATIVE); KETONES,URINE 80 mg/dL (NEGATIVE); LEUKOCYTE ESTERASE,URINE TRACE (NEGATIVE); NITRITE,URINE NEGATIVE (NEGATIVE); PROTEIN,URINE 100 mg/dL (NEGATIVE); URINE SPECIFIC GRAVITY 1.028
[2018-05-27 15:32] VITALS: BP 155/75
== END 2018-05-27 15:31 | disposition home or self-care (01) ==
LOC: ER 11:12
DX: R10.84 Generalized abdominal pain (principal); R11.2 Nausea with vomiting, unspecified; R19.7 Diarrhea, unspecified; I10 Essential (primary) hypertension; Z90.49 Acquired absence of other specified parts of digestive tract; Z88.2 Allergy status to sulfonamides; Z88.6 Allergy status to analgesic agent; Z90.710 Acquired absence of both cervix and uterus
CPT/HCPCS: 99284; 96372; 96361; 96374; 96375; 36415; 83690; 85025; 80053; 81001; J0500; J3490; J2270; J2405; J7040; S0028

== ENCOUNTER → 2018-11-08 | Outpatient (CLI) | payer MEDICARE, OTHER ==
--- NOTE | 2018-11-09 09:23 | RADIOLOGY REPORT (SQ) ---
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 TECHNIQUE: Multiplanar imaging includes noncontrasted T1, T2, FLAIR, diffusion with ADC map and post gadolinium contrast T1 sequences. Additional thin section imaging through the orbits including axial and coronal fat-sat T2 weighted im ages, pre and postcontrast T1 axial and coronal images through the orbits. Images stored on PACS. CONTRAST TYPE AND DOSE: 10 mL Dotarem. RENAL FUNCTION: Not indicated. ACR Type II contrast agent associated with few, if any, unconfounded cases of NSF LIMITATIONS: None. FINDINGS: ANATOMY: No anomalies. Normal vascular flow voids. Pituitary fossa normal. CSF SPACES: Normal in size and contour. No hemorrhage. CEREBRUM: Sulci and gyri normal in size and contour. Normal white matter signal on FLAIR imaging. No evidence of hemorrhage, mass, or extraaxial fluid collection. No abnormal enhancement post contrast. POSTERIOR FOSSA: No signal alteration. No hemorrhage. No edema, masses, or mass effect. Internal nicole tory canals, cerebellopontine angles, mastoids normal. No enhancing lesions. No abnormal enhancement post contrast. DIFFUSION IMAGING: Negative for acute or subacute infarction. ORBITS: Well-circumscribed soft tissue density nodule with avid gadolinium enhancement, within the in traconal fat between the lateral rectus muscle and optic nerve. This measures 8 x 6 x 7 mm in size, stable compared to 08/02/2016. There is no mass effect on the optic nerve. Again, this likely represe nts a small schwannoma or neurofibroma. Meningioma along the optic nerve sheath is possible. Silverio iopericytoma is possible but considered less likely. Globes are post cataract surgery. Left orbit is unremarkable. PARANASAL SINUSES: No fluid levels. Mucosa normal. OTHER: No other significant finding. IMPRESSION: STABLE WELL-CIRCUMSCRIBED BENIGN-APPEARING INTRACONAL NODULE RIGHT ORBIT. OTHERWISE, UNREMARKABLE MRI OF THE BRAIN WITHOUT AND WITH INTRAVENOUS GADOLINIUM CONTRAST. EVIDENCE OF ACUTE STROKE: NO. TECHNICAL DOCUMENTATION: JOB ID: [id number] [employer]- All Rights Reserved Reading location - IP/workstation name: [email or web address]
== END ==
LOC: RAD 15:54
PROVIDERS: ATTEND Ophthalmology
DX: D48.5 Neoplasm of uncertain behavior of skin (principal)
CPT/HCPCS: 82565; 70553; A9576

== ENCOUNTER → 2020-01-28 | Outpatient (CLI) | payer MEDICARE, OTHER ==
[2020-01-28 10:10] LABS: ANION GAP 11 (5-19); BLOOD UREA NITROGEN 16 mg/dL (7-20); CALCIUM 9.7 mg/dL (8.4-10.2); CARBON DIOXIDE 30 mmol/L (22-30); CHLORIDE 98 mmol/L (98-107); GLUCOSE 107 mg/dL (75-110); POTASSIUM 4.5 mmol/L (3.6-5.0)
== END ==
LOC: OD 08:48
PROVIDERS: ATTEND Physician Assistant
DX: R10.13 Epigastric pain (principal); R10.32 Left lower quadrant pain
CPT/HCPCS: 36415; 80048